=== PATIENT | female | born 1955 | race Caucasian/White ===

== ENCOUNTER 2020-03-04 09:04 | Outpatient (CLI) | payer MEDICARE, SELFPAY ==
--- NOTE | 2020-03-04 11:49 | NEURO_ITS ---
PATIENT NUMBER: [id number] IMPRESSION: # Complains of patchy loss of sensation in lower extremities. # Not diabetic # Normal nerve conduction study including F waves # Needle exam without neurogenci changes. # Clinical correlation recommended. Nerve Conduction Studies Anti Sensory Summary Table Stim Site NR Peak (ms) P-T Amp (?V) Site1 Site2 Delta-P (ms) Dist (cm) [place] (m/s) Left Sup Fibular Anti Sensory (Ant Lat Mall) 14 cm 3.5 10.2 14 cm Ant Lat Mall 3.5 16.0 46 Right Sup Fibular Anti Sensory (Ant Lat Mall) 14 cm 3.9 7.2 14 cm Ant Lat Mall 3.9 16.0 41 Left Sural Anti Sensory (Lat Mall) Calf 3.2 3.0 Calf Lat Mall 3.2 16.0 50 Right Sural Anti Sensory (Lat Mall) Calf 3.7 7.9 Calf Lat Mall 3.7 16.0 43 Motor Summary Table Stim Site NR Onset (ms) O-P Amp (mV) Site1 Site2 Delta-0 (ms) Dist (cm) [place] (m/s) Left Peroneal Motor (Vastus Med) Ankle 4.1 3.6 Popit Ankle 6.5 35.0 54 Popit 10.6 1.8 Right Peroneal Motor (Vastus Med) Ankle 3.7 4.8 Popit Ankle 7.5 35.0 47 Popit 11.2 3.8 Left Tibial Motor (Abd Jarvis Brev) Ankle 6.3 3.7 Knee Ankle 7.9 39.0 49 Knee 14.2 0.7 Right Tibial Motor (Abd Jarvis Brev) Ankle 4.7 4.7 Knee Ankle 8.0 38.0 48 Knee 12.7 2.2 F Wave Studies NR F-Lat (ms) L-R F-Lat (ms) Left Peroneal (Mrkrs) (EDB) 44.93 0.34 Right Peroneal (Mrkrs) (EDB) 45.26 0.34 Left Tibial (Mrkrs) (Abd Hallucis) 50.16 0.78 Right Tibial (Mrkrs) (Abd Hallucis) 50.94 0.78 EMG Side Muscle Nerve Root Ins Act Fibs Amp Dur Recrt Comment Right AntTibialis Dp Br Fibular L4-5 Nml Nml Nml Nml Nml Right Gastroc Tibial S1-2 Nml Nml Nml Nml Nml Right Fibularis Long Sup Br Fibular L5-S1 Nml Nml Nml Nml Nml Right Flex Dig Long Tibial L5-S2 Nml Nml Nml Nml Nml Right Ext Dig Brev Dp Br Fibular L5, S1 Nml Nml Nml Nml Nml Left AntTibialis Dp Br Fibular L4-5 Nml Nml Nml Nml Nml Left Gastroc Tibial S1-2 Nml Nml Nml Nml Nml Left Fibularis Long Sup Br Fibular L5-S1 Nml Nml Nml Nml Nml Left Flex Dig Long Tibial L5-S2 Nml Nml Nml Nml Nml Left Ext Dig Brev Dp Br Fibular L5, S1 Nml Nml Nml Nml Nml Left Ext Dig Long Dp Br Fibular L5-S1 Nml Nml Nml Nml Nml Right Ext Dig Long Dp Br Fibular L5-S1 Nml Nml Nml Nml Nml Right PostTibialis Tibial L5, S1 Nml Nml Nml Nml Nml Left PostTibialis Tibial L5, S1 Nml Nml Nml Nml Nml MTDD
== END 2020-03-04 09:05 | disposition home or self-care (01) ==
PROVIDERS: PCP Family Medicine; Visit Provider Family Medicine
DX: R20.2 Paresthesia of skin (principal)
CPT/HCPCS: 95886; 95910

== ENCOUNTER 2020-04-16 06:36 | Outpatient (CLI) | payer MEDICARE, SELFPAY ==
--- NOTE | ~2020-04-16 | MR_ITS ---
EXAMINATION: MR lumbar spine wo con EXAM DATE: 04/16/2020 07:46 INDICATION: Skin paresthesia. TECHNIQUE: Multi-sequential, multiplanar MR images of the lumbar spine were obtained without contrast . Sagittal T1, T2, T2 fat saturation images. Axial T2 weighted images. There are no prior studies for comparison. FINDINGS: Mild to moderate disc disease at L4-5 and L5-S1, mild at L2-3, L3-4. The conus medullaris t erminates at the L1/2 level and has normal signal intensity and morphology. There is 2 mm retrolisth esis L2 on L3 and L3 on L4. There are no suspicious marrow signal abnormalities. Bilateral renal holger pelvic cysts. Level by level evaluation: T12-L1: Disc does not extend beyond the endplate margin. Facet arthropathy: None. Neural foraminal stenosis: No stenosis. Central canal stenosis: No stenosis. L1-L2: Disc does not extend beyond the endplate margin. Facet arthropathy: Mild. Neural foraminal stenosis: No stenosis. Central canal stenosis: No stenosis. L2-L3: There is a mild diffuse disc bulge. Facet arthropathy: Mild. Neural foraminal stenosis: No stenosis. Central canal stenosis: Mild. L3-L4: There is a mild diffuse disc bulge. Facet arthropathy: Mild to moderate. Neural foraminal stenosis: Mild bilateral. Central canal stenosis: Mild. L4-L5: There is a mild diffuse disc bulge. Facet arthropathy: Mild to moderate. Neural foraminal stenosis: Moderate to severe left, mild to moderate right. Central canal stenosis: Mild. L5-S1: There is a mild diffuse disc bulge. Facet arthropathy: Mild. Neural foraminal stenosis: Moderate right, mild to moderate left. Central canal stenosis: No stenosis. IMPRESSION: L4-5 moderate to severe left neural foraminal stenosis, otherwise mild to moderate lumbar spondylosis. Reviewed, dictated and finalized at location B. OR FINANCIAL ANALYST IMPRESSION: L4-5 moderate to severe left neural foraminal stenosis, otherwise m ild to moderate lumbar spondylosis.
== END 2020-04-16 06:37 | disposition home or self-care (01) ==
PROVIDERS: PCP Family Medicine; Visit Provider Psychiatry & Neurology Neurology
DX: R20.2 Paresthesia of skin (principal); M47.896 Other spondylosis, lumbar region
CPT/HCPCS: 72148

== ENCOUNTER 2021-08-08 17:50 | Emergency (ER) | payer MEDICARE, SELFPAY ==
--- NOTE | ~2021-08-08 | XR_ITS ---
EXAMINATION: XR knee RT min 4V DATE: 08/08/2021 18:21 INDICATION: Right knee pain TECHNIQUE: Anteroposterior, 2 oblique and crosstable lateral views of the right knee were obtained COMPARISON: None. FINDINGS: Alignment is normal. No fracture. At least mild tricompartmental osteoarthritis at the right knee wi th mild joint space narrowing the lateral compartment and marginal osteophytes in all 3 compartments. No joint effusion/layering lipohemarthrosis. Soft tissues are unremarkable. IMPRESSION: 1. At least mild tricompartmental osteoarthritis at the right knee although severity of joint space n arrowing can be underestimated on nonweightbearing imaging. Reviewed, dictated and finalized at location A. NUE INVESTIGATOR IMPRESSION: 1. At least mild tricompartmental osteoarthritis at the right knee although sev erity of joint space narrowing can be underestimated on nonweightbearing imagcielo medina
--- NOTE | ~2021-08-08 | XR_ITS ---
EXAMINATION: XR ankle RT min 3V DATE: 08/08/2021 18:21 INDICATION: Right ankle pain TECHNIQUE: Anteroposterior, oblique, mortise, and lateral views of the right ankle were obtained. COMPARISON: None. FINDINGS: Alignment is normal. No fracture. Mild osteoarthritis at the talonavicular and calcaneocuboid joints .. Moderate-sized Achilles and plantar calcaneal spurs. Smaller enthesophytes along the medial malleo speedy. No ankle joint effusion. The soft tissues are unremarkable. IMPRESSION: 1. No acute osseous abnormality. Reviewed, dictated and finalized at location A. GE ANALYST
[2021-08-08 17:56] VITALS: BP 168/92; PULSE 70; RESP 14; TEMP 36.2; O2SAT 100
--- NOTE | 2021-08-08 18:04 | ED.LOWEXIN ---
HPI - Extremity Injury (Lower) General Chief Complaint: Extremity Injury, Lower Stated Complaint: knee pain Time Seen by Provider: 08/08/21 17:53 Source: RN notes reviewed History of Present Illness HPI Narrative: Patient presents emergency department from home for right knee pain. Patient states that just prior to arrival she was try to get up off the couch when she got up and twisted her right knee causing severe pain in the right knee states pain radiates down into the ankle and up into the posterior leg she denies directly striking the knee states she has been able to place minimal weight on the knee since that time she denies any other trauma or injury states she not taking thing for pain she denies any fevers or chills numbness or tingling of the extremities or any other symptoms of concern Related Data Allergies Allergy/AdvReac Type Severity Reaction Status Date / Time No Known Allergies Allergy Verified 08/08/21 18:00 Review of Systems Review of Systems: Gen.: Denies fevers or chills Musculoskeletal: See HPI Neuro: Denies numbness, tingling, weakness Skin: Denies rash Endo: Denies DM PMFSH Past Medical History Medical History (Updated 08/08/21 @ 19:14 by Guy Grullon DO) Patient denies significant medical history Social History Social History (Updated 08/08/21 @ 18:06 by Guy Grullon DO) Smoking status: Never smoker Exam Narrative: APPEARANCE: No acute distress, nontoxic, resting in bed Eyes: EOMI HEENT: Normocephalic, atraumatic, RESPIRATORY: No respiratory distress MUSCULOSKELETAl: Tender palpation of the right anterior lateral and medial knee no swelling present pain with any movement, tender palpation right medial malleolus and tenderness with anterior lateral ankle dorsalis pedis pulse 2+ neurovascular intact NEURO: Awake and alert. Following commands, speech normal, no focal deficits SKIN:: Warm, dry. Normal Color no rash or lesions Course Course Emergency Course: Discussed with patient results of workup and diagnosis. Discussed need for follow-up with primary care, proper use of medication, and reasons to return to the emergency department. Patient understands and agrees to current treatment plan Vital Signs Vital signs: Vital Signs Temperature 97.2 F L 08/08/21 17:56 Pulse Rate 70 08/08/21 17:56 Respiratory Rate 14 08/08/21 17:56 Blood Pressure 168/92 H 08/08/21 17:56 Pulse Oximetry 100 08/08/21 17:56 Temperature 97.2 F L 08/08/21 17:56 Pulse Rate 70 08/08/21 17:56 Respiratory Rate 14 08/08/21 17:56 Blood Pressure 168/92 H 08/08/21 17:56 Pulse Oximetry 100 08/08/21 17:56 MDM - Extremity Injury (Lower) Imaging Data Radiologist's impression: ITS Impressions Ankle X-Ray 08/08/21 18:43 IMPRESSION: 1. No acute osseous abnormality. Knee X-Ray 08/08/21 18:49 IMPRESSION: 1. At least mild tricompartmental osteoarthritis at the right knee although severity of joint space narrowing can be underestimated on nonweightbearing imaging. Discharge Plan Discharge Clinical Impression: Right knee sprain Patient Disposition: Home, Self-Care Condition: Stable Instructions: Antibiotic Form, Knee Sprain (ED) Additional Instructions: Return for increasing pain numbness or tingling in the extremities or any other symptoms of concern Prescriptions: New ibuprofen [IBU] 600 mg tablet 600 mg PO Q6H PRN (Reason: pain) Qty: 14 RF: 0 Follow-up/Referrals: Adriana,Cyril Carmona MD [Primary Care Provider] - 2 Days Time of Disposition: 19:14
[2021-08-08] MEDS: HYDROcodone/acetaminophen (*CRX) 5-325 MG TABLET 1 TAB PO (18:11)
== END 2021-08-08 19:40 | disposition home or self-care (01) ==
PROVIDERS: Emergency Provider Emergency Medicine; PCP Family Medicine
DX: S83.91XA Sprain of unspecified site of right knee, initial encounter (principal); M17.11 Unilateral primary osteoarthritis, right knee; X50.9XXA Other and unspecified overexertion or strenuous movements or postures, initial encounter
CPT/HCPCS: 73564; 73610; 99284; A9270

== ENCOUNTER 2023-12-20 03:42 | Emergency (ER) | payer MEDICARE, OTHER, SELFPAY ==
--- NOTE | ~2023-12-20 | XR_ITS ---
Portable chest x-ray Comparison: None Clinical History: Cough, shortness of breath Findings: Lungs are clear, without focal consolidation or pleural effusion. Cardiomediastinal silho uette is unremarkable. Bones and soft tissues are unremarkable. Impression: Clear lungs. Reviewed, dictated and finalized at location . Impression: Clear lungs.
[2023-12-20 03:42] VITALS: BP 133/70; PULSE 87; RESP 25; TEMP 38.3; O2SAT 100
[2023-12-20 03:47] VITALS: BP 133/70; PULSE 88; PULSE 89; RESP 25; TEMP 38.3; O2SAT 100
[2023-12-20] MEDS: ACETAMINOPHEN 500 MG TABLET 1000 MG PO (04:05)
[2023-12-20] MEDS: SODIUM CHLORIDE 0.9% IV 1,000 ML 999 ML IV CONT (04:05)
--- NOTE | 2023-12-20 04:30 | ED.GENADULT ---
HPI - General Adult General Chief complaint: Shortness of Breath/Dyspnea Stated complaint: SHORT OF BREATH Time Seen by Provider: 12/20/23 03:45 History of Present Illness HPI narrative: Patient is a 68-year-old female who presents emergency department with chief complaint of shortness of breath body aches and headache. The patient states she has started having aching throughout her entire body this evening reports she has a sore throat the patient reports that she has not been exposed to COVID patient reports had a dry cough with this. Related Data Allergies Allergy/AdvReac Type Severity Reaction Status Date / Time No Known Allergies Allergy Verified 06/28/22 15:14 [facility] Past Medical History Medical History Patient denies significant medical history Social History Social History Smoking status: Never smoker Exam Narrative: GENERAL: Well-appearing, well-nourished, and in no acute distress. HEAD: Normocephalic, atraumatic. EYES: PERRLA and EOMI. ENT: Nares clear, no rhinorrhea or epistaxis. Mucous membranes moist. NECK: Supple. CHEST: Clear to auscultation. No respiratory distress. HEART: Regular rate and rhythm. No murmur heard. Normal peripheral pulses. ABDOMEN: Soft, nontender, nondistended, normal active bowel sounds. EXTREMITIES: Normal range of motion. No edema. SKIN: Warm, dry, no rash. NEURO: No focal deficits. Alert and oriented x3. PSYCH: Normal mood and affect. Course Vital Signs Vital signs: Vital Signs Temperature 38.3 C H 12/20/23 03:42 Pulse Rate 87 12/20/23 03:42 Respiratory Rate 25 H 12/20/23 03:42 Blood Pressure 133/70 12/20/23 03:42 Pulse Oximetry 100 12/20/23 03:42 Oxygen Delivery Room Air 12/20/23 03:42 Temperature 38.3 C H 12/20/23 03:47 Pulse Rate 94 12/20/23 05:57 Respiratory Rate 19 12/20/23 05:57 Blood Pressure 133/60 12/20/23 05:57 Pulse Oximetry 95 12/20/23 05:57 Oxygen Delivery Room Air 12/20/23 03:47 Medical Decision Making MDM Narrative Medical decision making narrative: Differential diagnosis includes COVID-19, UTI, URI, pneumonia Laboratory studies were obtained on the mesh normal CBC CMP was within normal limits with exception of AST being 9 3 and ALT 55 urinalysis showed no evidence UTI COVID flu RSV were negative strep was negative chest x-ray showed no focal infiltrate The patient will be discharged home follow up with her primary care provider Vital Signs Vital Signs: Vital Signs Temperature 38.3 C H 12/20/23 03:42 Pulse Rate 87 12/20/23 03:42 Respiratory Rate 25 H 12/20/23 03:42 Blood Pressure 133/70 12/20/23 03:42 Pulse Oximetry 100 12/20/23 03:42 Oxygen Delivery Room Air 12/20/23 03:42 Temperature 38.3 C H 12/20/23 03:47 Pulse Rate 94 12/20/23 05:57 Respiratory Rate 19 12/20/23 05:57 Blood Pressure 133/60 12/20/23 05:57 Pulse Oximetry 95 12/20/23 05:57 Oxygen Delivery Room Air 12/20/23 03:47 Lab Data 12/20/23 04:00 12/20/23 04:00 Labs: Lab Results 12/20/23 12/20/23 Range/Units 04:00 05:14 WBC 5.7 (4.5-10.0) K/mm3 RBC 3.74 L (4.2-5.4) M/mm3 Hgb 11.7 L (12.0-15.0) g/dL Hct 35.2 L (37.0-47.0) % MCV 94.1 (80-100) fl MCH 31.3 (26-34) pg MCHC 33.2 (32-36) g/dl RDW 13.2 (11.5-14.5) % Plt Count 163 (150-375) k/mm3 MPV 10.9 H (7.4-10.4) fl Immature Gran % (Auto) 0.2 (0-0.5) % Neut % (Auto) 90.1 H (45.5-73.1) % Lymph % (Auto) 8.6 L (18.3-44.2) % [place] % (Auto) 0.3 L (2.6-8.5) % Eos % (Auto) 0.5 (0-4.4) % Baso % (Auto) 0.3 (0.2-1.2) % Lymph # (Auto) 0.49 L (0.9-3.2) K/mm3 [place] # (Auto) 0.0 L (0.1-0.6) K/mm3 Eos # (Auto) 0.0 (0-0.3) K/mm3 Baso # (Auto) 0.0 (0.0-0.1) K/mm3 Abs Immat Gran (auto) 0.01 (0.00-0.031) K/mm3 Ab
[2023-12-20 04:42] LABS: Basophils Percent Auto 0.3 % (0.2-1.2); Eosinophils Percent Auto 0.5 % (0-4.4); Hematocrit 35.2 % (37.0-47.0); Hemoglobin 11.7 g/dL (12.0-15.0); Immature Granulocyte Absolute 0.01 K/mm3 (0.00-0.031); Immature Granulocyte Percent A 0.2 % (0-0.5); Lymphocytes Absolute Auto 0.49 K/mm3 (0.9-3.2); Lymphocytes Percent Auto 8.6 % (18.3-44.2); Mean Corpuscular HGB Conc 33.2 g/dl (32-36); Mean Corpuscular Hemoglobin 31.3 pg (26-34); Mean Corpuscular Volume 94.1 fl (80-100); Mean Platelet Volume 10.9 fl (7.4-10.4); Monocytes Percent Auto 0.3 % (2.6-8.5); Neutrophils Absolute Auto 5.2 K/mm3 (1.3-6.7); Neutrophils Percent Auto 90.1 % (45.5-73.1); Platelet Count Result 163 k/mm3 (150-375); Red Blood Count 3.74 M/mm3 (4.2-5.4); Red Cell Distribution Width 13.2 % (11.5-14.5); White Blood Count 5.7 K/mm3 (4.5-10.0)
[2023-12-20 04:51] LABS: Lactic Acid Reflex 1.8 mmol/L (0.7-2.0)
[2023-12-20 04:52] LABS: Alanine Aminotransferase 55 U/L (6-35); Alkaline Phosphatase 105 U/L (38-126); Anion Gap 7 mmol/L (4-12); Aspartate Amino Transferase 93 U/L (14-36); Bilirubin,Total 0.5 mg/dL (0.2-1.3); Blood Urea Nitrogen 16 mg/dL (7-17); Carbon Dioxide 28 mmol/L (22-30); Chloride 105 mmol/L (98-107); Estimated CRCL calculation 75 ml/min; Estimated Glomerular Filt Rate > 60; Glucose 97 mg/dL (65-110); Potassium 3.7 mmol/L (3.4-5.0); Sodium 140 mmol/L (137-145)
[2023-12-20] MEDS: KETOROLAC 15 MG/ML VIAL (*BKC) IV PUSH (05:05)
[2023-12-20 05:06] LABS: Strep Group A RT-PCR NOT DETECTED (Negative)
[2023-12-20 05:18] LABS: Influenza A QL RT-PCR Negative (Negative); Influenza B QL RT-PCR Negative (Negative); RSV RNA, RT-PCR Negative (Negative); SARS-CoV-2 RNA PCR Negative (Negative)
[2023-12-20] MEDS: diphenhydrAMINE HCl INJ 50 MG/ML VIAL 25 MG IV PUSH (05:26)
[2023-12-20 05:38] LABS: Appearance Urine Clear (Clear); Bilirubin Urine Negative (Negative); Blood Urine Negative (Negative); Color Urine Yellow (Yellow); Glucose Urine UA Negative (Negative); Ketones Urine Negative (Negative); Leukocyte Esterase Ur Negative LEU/UL (Negative); Nitrate Urine Negative (Negative); Protein Urine Negative (Negative); Specific Grav Ur 1.013 (1.001-1.035); pH Urine 7.5 (5.0-9.0)
[2023-12-20 05:43] LABS: Add Urine Microscopic? NO
[2023-12-20 05:57] VITALS: BP 133/60; PULSE 94; RESP 19; O2SAT 95
== END 2023-12-20 06:35 | disposition home or self-care (01) ==
PROVIDERS: Emergency Provider Emergency Medicine; PCP Family Medicine
DX: J06.9 Acute upper respiratory infection, unspecified (principal); B34.9 Viral infection, unspecified; Z20.822 Contact with and (suspected) exposure to COVID-19
CPT/HCPCS: 36415; 71045; 80053; 81003; 83605; 85025; 87637; 87651; 96361; 96374; 96375; 99284; A9270; J1200; J1885; J7030

== ENCOUNTER → 2024-01-07 16:27 | Outpatient (REF) | payer MEDICARE, SELFPAY | LOC: ANHLAB 16:27 | PROVIDERS: PCP Family Medicine; Visit Provider Plastic Surgery | DX: R22.9 Localized swelling, mass and lump, unspecified (principal) | CPT/HCPCS: 88304 ==

== ENCOUNTER 2024-02-06 07:18 | Outpatient (CLI) | payer MEDICARE, SELFPAY ==
--- NOTE | ~2024-02-06 | US_ITS ---
EXAMINATION: US soft tissue LE DATE: 02/06/2024 08:13 INDICATION: Left thigh mass. TECHNIQUE: Multiple grayscale and Doppler ultrasound images of the left lower limb were obtained. COMPARISON: None FINDINGS: There is no abnormal mass in the patient's area of concern in left thigh. IMPRESSION: 1. No abnormal mass in the patient's area of concern in left thigh. Reviewed, dictated and finalized at location A.
--- NOTE | ~2024-02-06 | US_ITS ---
EXAMINATION: US soft tissue UE RT DATE: 02/06/2024 08:14 INDICATION: Right upper limb mass. TECHNIQUE: Multiple grayscale and Doppler ultrasound images of the right upper limb were obtained. COMPARISON: None FINDINGS: In the right upper arm, there is a 1.3 x 0.7 x 0.4 cm hyperechoic subcutaneous mass. IMPRESSION: 1. 1.3 cm hyperechoic subcutaneous mass in the right upper arm, likely inflammation or a lipoma. Reviewed, dictated and finalized at location A. IMPRESSION: 1. 1.3 cm hyperechoic subcutaneous mass in the right upper arm, likely inflamma tion or a lipoma.
== END 2024-02-06 07:19 | disposition home or self-care (01) ==
PROVIDERS: PCP Physician Assistant; Visit Provider Physician Assistant Surgical
DX: R22.31 Localized swelling, mass and lump, right upper limb (principal); R22.42 Localized swelling, mass and lump, left lower limb
CPT/HCPCS: 76882

== ENCOUNTER 2024-07-22 15:27 | Outpatient (CLI) | payer MEDICARE, SELFPAY ==
--- NOTE | ~2024-07-22 | MM_ITS ---
EXAMINATION: MM screening [facility] HISTORY: Screening TECHNIQUE: Craniocaudal and mediolateral oblique 3-D tomosynthesis images were obtained and synthetic 2-D images were generated. CAD analysis was submitted and interpreted. COMPARISON: No prior mammogram is available for comparison at this institution. BREAST PARENCHYMAL COMPOSITION: Not Dense: The breasts are almost entirely fatty. FINDINGS: There are small masses in the upper outer quadrant of the left breast. There is no mammogra phic evidence for malignancy in the right breast. IMPRESSION: 1. Small left breast masses. 2. Recommend comparison to outside mammograms to assess stability. BI-RADS Category 0: Incomplete: Needs additional imaging evaluation. Reviewed, dictated and finalized at location B. [facility]ENT
--- OUTSIDE RECORDS SUMMARY | 2024-07-22 15:31 | XMS_ITS | Referral Summary ---
Author Organization [facility] Address [address] [place] [address] Care Team Providers Care Marketing Underwriter Name Role Phone Robert Everett MD Primary Care Provider [phone] Allergies No known active allergies Medications atorvastatin (LIPITOR) 20 mg tablet 01/10/2022 Active fluconazole (DIFLUCAN) 150 mg tablet 1 TAB X 1 DAY MAY REPEAT IN 3 DAYS NEEDED 04/06/2023 Active Xiidra 5 % dropperette 04/16/2023 Active Active Problems Problem Noted Date Diagnosed Date Osteoarthritis 03/04/2019 Autoimmune hepatitis (CMS/HCC) 01/14/2019 Chronic constipation 01/14/2019 Nodular radiologic density 01/14/2019 Knee pain 01/14/2019 Pain of right lower extremity 01/14/2019 Sinusitis 01/14/2019 Symptoms involving urinary system 01/14/2019 Tear of meniscus of knee 01/14/2019 Endometrial cancer (CMS/HCC) 01/14/2019 Overview (01/14/2019): Added automatically from request for surgery [id number] Post-menopausal bleeding 01/14/2019 Overview (01/14/2019): Added automatically from request for surgery [id number] Obesity with body mass index 30 or greater 01/19 Positive antinuclear antibody 01/20/2016 Immunizations Immunization Administration Dates Next Due Influenza, Quadrivalent, Hig h Dose, Preservative Free, Intrr 03/03/2022,06/09/2021,02/04/2020 Influenza, Quadrivalent, Spl it, Intramuscular 03/30/2016 Influenza, Quadrivalent, Spl it, Preservative Free, Intramuscular 04/04/2017 Pfizer SARS-CoV-2 Monovalent Vaccination (12+ Yrs) PURPLE 08/17/2020 Pneumococcal Polysaccharide PPV23 06/09/2021 Tdap 02/08/2020 ZOSTER Recombinant 05/05/2020,02/08/2020 Social History Tobacco Use Types Packs/Day Years Used Date Smoking Tobacco: Never Smokeless Tobacco: Never Tobacco Cessation:Counseling Given: Not Answered Alcohol Use Standard Drinks/Week Comments Yes 1 (1 standard drink = 0.6 oz pure alcohol) occasionally , 2 drinks a month AUDIT-C Answer Date Recorded Q1: How often do you have a drink containing alc ohol? 2-4 times a month 04/11/2022 Q2: How many drinks containi ng alcohol do you have on a typical day when you are drinking? 5 or 6 04/11/2022 Q3: How often do you have si x or more drinks on one occasion? Less than monthly 04/11/2022 Comments No Sex and Gender Information Value Date Recorded Sex Assigned at Not on file Legal Sex Female 5:53 AM SECOND MATE Gender Identity Not on file Sexual Orientation Not on file Last Filed Vital Signs Vital Sign Reading Time Taken Comments Blood Pressure 160/86 04/18/2023 11:34 AM SECOND MATE Pulse 68 04/18/2023 11:34 AM SECOND MATE Temperature 36.6 C (97.8 F) 04/18/2023 11:34 AM SECOND MATE Respiratory Rate 16 04/18/2023 11:3 4 AM SECOND MATE Oxygen Saturation 96% 04/18/2023 11: 34 AM SECOND MATE Inhaled Oxygen Concentration - - Weight 99.7 kg (219 lb 14.4 oz) 023 11:34 AM SECOND MATE Height 160 cm (5' 2.99 ) 04/18/2023 11: 34 AM SECOND MATE Body Mass Index 38.96 04/18/2023 11:34 AM SECOND MATE Plan of Treatment Not on file Procedures Procedure Name Priority Date/Time Associated Diagnosis Comments COLONOSCOPY 02/06/2019 8:01 AM CDT from Last 3 Months or Most Recently Relevant to Health Maintenance Results * COLONOSCOPY (02/06/2019 8:01 AM CDT) Anatomical Region Laterality Modality Other Narrative Procedure Note Shahzad Hylton MD - 02/06/2019 8:01 AM CDT ENDOSCOPY LAB Patient Name: Lashonda Lyons Procedure Date: 02/06/2019 8:01 AM Date of : 1955 Admit Type: Outpatient Age: 63 Gender: Female Attending MD: Shahzad Hylton M.D. Room: [place] [address] Note Status: Manager Implementation Override Procedure: Colonoscopy Indications: Screening for colorectal malignant neoplasm (last colonoscopy was 10 years ago) Providers: Shahzad Hylton M.D. Referring MD: Juan Miguel Evangelista MD Medicines: Monitored Anesthesia Care Complications: No immediate complications. Estimated Blood Loss: Estimated blood loss: none. Procedure: Pre-Anesthesia Assessment: - Immediately prior to administration of medications,the patient was re-assessed for adequacy to receivesedatives. The benefits, risks and alternatives of the procedureand sedation were discussed and informed consent wasobtained. All questions were answered. Please refer to the signed informed consent document in the medical record. Thescope was passed under direct vision. The [id number] introduced through the anus and advanced to the cecum, identified by appendiceal orifice and ileocecal valve.The colonoscopy was performed without difficulty. Thepatient tolerated the procedure well. The quality of the bowel preparation was evaluated using the BBPS ([place] Bowel Preparation Scale) with scores of: Right Colon = 2(minor amount of residual staining, small fragments of stool and/or opaque liquid, but mucosa seen well), Transverse Colon = 3 (entire mucosa seen well with no residual staining, small fragments of stool or opaque liquid)and Left Colon = 2 (minor amount of residual staining,small fragments of stool and/or opaque liquid, but mucosaseen well). The total BBPS score equals 7. The quality ofthe bowel preparation was good. The bowel preparation usedwas SUPREP. Bowel prep was administered using a splitdose. Findings: The perianal and digital rectal examinations were normal. A 3 mm polyp was found in the ascending colon. The polyp was sessile. The polyp was removed with a hot biopsy forceps. Resection andretrieval were complete. The exam was otherwise without abnormality. Impression: - One 3 mm polyp in the ascending colon, removed with a hot biopsy forceps. Resected and retrieved. - The examination was otherwise normal. Recommendation: - Await pathology results. - Repeat colonoscopy in 10 years for surveillance. Shahzad Hylton MD Shahzad Hylton M.D. 02/06/2019 8:47:15 AM Number of Addenda: 0 Note Initiated On: 02/06/2019 8:01 AM us Shahzad Hylton MD ENDOSCOPY PROCEDURES Ed ited Result - Final from Last 3 Months or Most Recently Relevant to Health Maintenance Insurance ANTHEM ACCESS ANTHEM ACCESS CHOICE [employer] MEDICARE GOLD ANTHEM ACCESS Member Subscriber Plan / Payer (Ef fective 2019-Present) Name:Karina Lyonsdia Relation to Subscriber:Self Name:Lashonda Lyons Payer ID:[id number] (NAIC) Type:[employer] Address: [address] [place] [id number] [facility] MDCR HMO REF Advance Directives For more information, please contact: [phone] * Full Code (Latest Code Status on File) Date Activated Date Inactivated Comments 02/13/2019 5:34 PM 02/14/2019 4:01 PM * Full Code Date Activated Date Inactivated Comments 02/06/2019 7:38 AM 02/06/2019 1:33 PM Care Teams Marketing Underwriter Relationship Specialty Start Date End Date Robert Everett MD [address] [place] [address] PCP - General 01/23/19
--- OUTSIDE RECORDS SUMMARY | 2024-07-22 15:31 | XMS_ITS | Data Portability ---
Author Organization [facility] Address [address] [place] [address] Care Team Providers Care Magistrate Name Role Phone FRANKLIN MATTA Primary Care Provider Assessment Encounter Date Assessment Date Assessment LastModified by Organization Details LastModified Time 03/13/2023 03/13/2023 Annual gynecological exam performed. Patient will come back in a year unless there are new symptoms. [email or web address] Not available 03/13/2023 09:40:27 Plan of Treatment Reminders Order Date Submit Date Provider Last Modified By Organization Details Last Modified Time Details Appointments None recorded. Lab None recorded. Referral urogynecolo gist referral 2022 023 [email or web address] [id number] Jovan Shaffer MD, [address] [facility] [address], [place], [address], 09:43:15 Procedures None recorded. Surgeries None recorded. Imaging None recorded. Medication Orders terconazole 0.4 % vaginal cream 2021 022 [email or web address] [id number], [address], [place], [address], 09:40:46 Patient TargetsNo targets recorded. Patient InstructionsNo instructions recorded. Reason for Referral Urogynecologist Referral for Prolapse of female genital organs Referring Physician: Emilie Haas, [employer], Encounter Date: 04/09/2023 Results Created Date Observation Date Name Description Value Unit Range Abnormal Flag Note LastModifiedBy Organization Detail LastModifiedTime 04/28/20 24 04/28/2024 SURGI [facility] PATHO LOGY surgical pathology SEE RESULT S BELOW CASE REPOR T: Surgi constanza Patho logy Repor t Case: [id number] Autho herberth moise Provi lisa: Berna Everett MD Colle cted: 04/28 1422 Order ing Locat ion: [place] Path[facility] Recei shayan: 04/29 0230 Patho logis t: Stefan Baumann MD Speci mens: A) - Vulva , Vulva r lesio n B) - Vulva , Vulva r lesio n ----- ----- ----- ----- ----- ----- ----- ----- ----- ----- ----- ----- ----- ----- ----- ----- ----- ---- FINAL DIAGN OSIS: A. Vulva r lesio n: -Sebo rrhei c kerat osis. B. Vulva r lesio n: -Handy lupis aЮлия wang by Stefan Baumann MD on 04/29 at 6:05 PM ----- ----- ----- ----- ----- ----- ----- ----- ----- ----- ----- ----- ----- ----- ----- ----- ----- ---- CLINI CONSTANZA INFOR MATIO N: Jonathanio n of vulva MICRO SCOPI C DESCR IPTIO N: A micro scopi c exami natio n was perfo rmed. GROSS DESCR IPTIO N: A. Vulva . The speci men is label ed with the patie nt's name, demog raphceasar pierre and vulva r lesio n . Recei shayan in forma alicia is a 2.0 x 1.4 cm ellip se of skin that is excis ed to a depth of 0.5 cm. There is a centr ally locat ed 1.4 x 1.4 cm avila lesio n. The steff n is inked black and the speci men is seria lly secti oned. It is submi tted all as follo ws: A1: Seria l secti ons A2-A3 : Bisec warren tips Gross ed by Laurel Gonzalez on B. Vulva . The speci men is label ed with the patie nt's name, demog raphi cs and vulva r lesio n . Recei shayan in forma alicia is a 0.7 x 0.5 cm ellip se of skin that is excis ed to a depth of 0.5 cm. There is a centr ally locat ed 0.6 x 0.4 cm grade lesio n. The steff n is inked black and the speci men is trise cted and submi tted in casse tte B1. Gross ed by Laurel Gonzalez on Not Available [facility] (Lab) [address], [place], [address], 04/29/2024 19:08:10 Result Notes None recorded. Problems Name Problem SNOMED Code Status Onset Date Resolution Date Notes Provider Name and Address Organization Details Recorded Time Malignant neoplasm of endometrium of corpus uteri 428299834 Active 2022 Arabella gómez, [facility] 18:03:35 Problem Notes None recorded. Procedures Surgical History Date Name Laterality Status Provider Name and Address Organization Details Recorded Time 05/14/20 24 Suture/Staple removal completed Robert Everett MD [address], [place], [address], [facility] 05/14/2024 18:06:23 04/28/20 24 Excision and closure completed Robert Everett MD [address], [place], [address], [facility] 04/28/2024 10:24:15 03/15/20 22 Date of Last Pap Smear completed Rufina Oj [facility] 04/28/2024 09:37:30 01/09/20 19 diagnostic laparoscopy of female pelvis completed [facility] 01/23/2022 16:59:41 06/04/19 19 Total Hysterectomy completed [facility] 01/23/2022 16:50:04 06/04/18 90 Appendectomy completed [facility] 01/23/2022 16:49:48 06/04/18 71 Tonsillectomy completed [facility] 01/23/2022 16:49:39 Imaging Results None recorded. Procedure Notes None recorded. Medical Equipment None Reported. Allergies No known drug allergies Medications Name Sig Start Date Stop Date Status Note LastModified by Organization Details LastModified Time status covid-19/fl u a&b antigen tst TEST DIRECTED TODAY 04/28 completed Not Available Not Available Not Available amoxicillin 500 mg capsule TAKE 1 CAPSULE BY MOUTH TWICE A DAY WITH FOOD 04/28 completed Not Available Not Available Not Available atorvastati n 40 mg tablet TAKE 1 TABLET BY MOUTH EVERY DAY active Not Available Not Available No t Available terconazole 0.4 % vaginal cream Insert 1 applicato rful every day by vaginal route at bedtime for 7 days. 03/13 completed Not Available Not Available Not Available atorvastati n 20 mg tablet Take 1 tablet every day by oral route. 04/28 completed Not Available Not Available Not Available dexamethaso ne 6 mg tablet TAKE 1 TABLET BY MOUTH EVERY DAY IN THE MORNING FOR 7 DAYS 04/28 completed Not Available Not Available Not Available ciprofloxac in 500 mg tablet TAKE 1 TABLET BY MOUTH EVERY 12 HOURS FOR 7 DAYS 04/28 completed Not Available Not Available Not Available fenofibrate micronized 134 mg capsule TAKE 1 CAPSULE BY MOUTH EVERY DAY IN THE MORNING FOR HIGH TRIGLYCER IDES active Not Available Not Available No t Available clotrimazol e-betametha sone 1 %-0.05 % topical cream APPLY TO AFFECTED/ SURROUNDI NG AREAS UNDER BOTH BREASTS TWICE DAILY IN THE MORNING/E VENING X2 WEEKS active Not Available Not Available No t Available ergocalcife rol (vitamin D2) 1,250 mcg (50,000 unit) capsule TAKE 1 CAPSULE BY MOUTH ONCE WEEKLY active Not Available Not Available No t Available ezetimibe 10 mg tablet TAKE 1 TABLET BY MOUTH EVERY DAY IN THE MORNING FOR HIGH CHOLESTRO L active Not Available Not Available No t Available ibandronate 150 mg tablet TAKE 1 TABLET BY MOUTH EVERY MONTH active Not Available Not Available No t Available Vitals Date Recorded Body height Body mass index (BMI) Body weight Systolic blood pressure Diastolic blood pressure Provider Name and Address Organization Details Last Updated DateTime 01/23/2022 160.02 cm 40.4 kg/m2 498750.0 6 g 144 mm[Hg] 78 mm[Hg] [facility] 2 16:49:15 Date Recorded Body height Body mass index (BMI) Body weight Systolic blood pressure Diastolic blood pressure Provider Name and Address Organization Details Last Updated DateTime 03/13/2023 160.02 cm 39.9 kg/m2 364110.2 8 g 155 mm[Hg] 83 mm[Hg] [facility] 3 09:40:43 Date Recorded Body height Body mass index (BMI) Body weight Systolic blood pressure Diastolic blood pressure Provider Name and Address Organization Details Last Updated DateTime 04/09/2023 160.02 cm 39.7 kg/m2 878094.6 9 g 147 mm[Hg] 83 mm[Hg] Arabella Linton [facility] 3 18:02:17 Date Recorded Body height Body mass index (BMI) Body weight Systolic blood pressure Diastolic blood pressure Provider Name and Address Organization Details Last Updated DateTime 04/28/2024 160.02 cm 41.1 kg/m2 779623.4 3 g 143 mm[Hg] 78 mm[Hg] Rufina Mcwilliams [facility] 4 09:36:28 Date Recorded Body height Body mass index (BMI) Body weight Systolic blood pressure Diastolic blood pressure Provider Name and Address Organization Details Last Updated DateTime 05/14/2024 160.02 cm 41.8 kg/m2 595685.8 g 156 mm[Hg] 87 mm[Hg] Rufinadelisa Mcwilliams [facility] 17:47:17 Social History Question Answer Notes LastModified by Organizat ion Details LastModified Time Tobacco Smoking Status Never Smoker Mayte Ring rico, [facility] 03/13/2023 09:41:07 What Is Your Level Of Alcohol Consumption? Occasional [email or web address] Information not available 04/09/2023 Are You Blind Or Do You Have Difficulty Seeing? No [email or web address] Information n ot available 04/09/2023 What Is Your Level Of Caffeine Consumption? Moderate [email or web address] Information not available 04/09/2023 How Much Tobacco Do You Chew? None Information not available 04/28/2024 In The 14 Days Before Symptom Onset, Have You Had Close Contact With A Laboratory-confirm ed COVID-19 While That Case Was Ill? No [email or web address] Information n ot available 04/09/2023 In The 14 Days Before Symptom Onset, Have You Had Close Contact With A Person Who Is Under Investigation For COVID-19 While That Person Was Ill? No Information not available 04/09/2023 Have You Been To An Area Known To Be High Risk For COVID-19? No [email or web address] Information not available 04/09/2023 Are You Deaf Or Do You Have Serious Difficulty Hearing? No [email or web address] Information not available 04/09/2023 What Type Of Diet Are You Following? REGULAR [email or web address] Information n ot available 04/09/2023 Have You Ever Been Counseled For Unhealthy Alcohol Use? No [email or web address] Information not available 04/09/2023 Do You Use Your Seat Belt Or Car Seat Routinely? Yes [email or web address] Information not available 04/09/2023 Do You Have Smoke And Carbon Monoxide Detectors In Your Home? Yes [email or web address] Information not available 04/09/2023 How Much Tobacco Do You Smoke? No Information not available 04/28/2024 Do You Feel Stressed (tense, Restless, Nervous, Or Anxious, Or Unable To Sleep At Night)? [id number] [email or web address] Information not available 04/09/2023 Do You Use Any Illicit Or Recreational Drugs? No [email or web address] Information not available 04/09/2023 Do You Use Sunscreen Routinely? Yes [email or web address] Information not available 04/09/2023 Has Tobacco Cessation Counseling Been Provided? No [email or web address] Information not available 04/09/2023 Do You Or Have You Ever Used Any Other Forms Of Tobacco Or Nicotine? No [email or web address] Information not available 04/09/2023 Sex: Unknown Functional Status Question Answer Note LastModified by Organizat ion Details LastModified Time Do you have difficulty walking or climbing stairs? No [email or web address] Information not available 04/09/2023 Are you able to walk? YESWOREST [email or web address] Information not available 04/09/2023 Are you able to care for yourself? Yes [email or web address] Information not available 04/09/2023 Do you have difficulty dressing or bathing? No [email or web address] Information not available 04/09/2023 What is your exercise level? Occasional [email or web address] Information not available 04/09/2023 Mental Status None recorded. Family History Relationship Description Onset Age of this Age Resolved Age Notes LastModified by Organization Details LastModified Time Father Malignant tumor of colon [email or web address] Not available 2021 16:23:45 Father Heart disease [email or web address] Not available 2021 16:25:24 Mother Diabetes mellitus [email or web address] Not available 2021 16:25:37 Mother Hyperlipidem ia Not available 2023 09:03:41 Mother Hypertensive disorder [email or web address] Not available 2021 16:26:22 Mother Malignant tumor of ovary [email or web address] Not available 2021 16:26:58 Medical History Condition Response Allergies (Food, seasonal, environmental ) N Other N Breast Cancer N Drug/Latex Allergies/Reactions N Blood Transfusion N Dermatologic Disorders N Lung Disease N Defects or Inherited Disease N Breast Problem N Gestational Diabetes N Hematologic disorders N Anesthesia Complications N History of STI N Deep Vein Thrombosis N Polycystic ovary syndrome N Anxiety Disorder N Autoimmune disease N Arthritis N Infertility N Polyps N Acid Reflux (GERD) N History of abnormal pap N Cancer Y Stroke N Varicosities N Neurologic/Epilepsy N Endometriosis Y High Cholesterol Y Headaches N Fibromyalgia N Kidney Disease N Heart Problems N Kidney or Bladder Problems N Thyroid Problems N GI Problems N Eating Disorder N Anemia Y Art (IVF or FET) N Psychiatric Illness N Ovarian Cancer N Diabetes N Pulmonary (TB, Asthma) N Hepatitis/Liver Disease N No Past Medical History N Eczema N Urinary Tract Infection N Abuse/Domestic Violence N Asthma N Trauma/Violence N Depression/ depression N Heart Disease N Pre-Eclampsia N Hypertension N Osteoporosis N Thrombophilias N Gynecological History Statement/Question Response Abnormal Pap N Date of LMP 06/04/2018 STIs/STDs N Was last menstrual period normal Y HPV Vaccine N Current Control Method Hysterectom y Are cycles usually normal Y Frequency of Cycle (Q days) 3 Menses Monthly N Age of first menstrual cycle 11 Date of Last Pap Smear 03/15/2022 Sexual Problems? N LMP Unknown Obstetrics History GPAL:G 4 P 2 0 2 2 Type Value Full Term 2 Spontaneous 2 Living 2 Total 4 Past Encounters Encounter ID Performer Location Encounter Start Date Encounter Closed Date Diagnosis/Indication Diagnosis SNOMED-CT Code Diagnosis ICD10 Code Diagnosis Note [id number] Robert Everett MD [facility] [address] [address] 01/23/2022 16:15:37 01/23/2022 17:46:22 Vaginitis 09990073 N76.0 Lesion of vulva 63118536 6 N90.89 this patient is a 66-year-ol d female presents for vulvar irritation and vulvar lesion. The suprapubic area near the months inferior mons. She has a seborrheic keratosis. Was examined. There was also a hemangioma in that same space. Is very close to the midline. We talked about treatment. Talked about excision primarily. Patient has survived endometria l cancer. She has asked about Pap smear. She needs Pap smear the vaginal cuff for endometria l cancer recurrence . She has vulvar irritation . We will treat for yeast infection. It has only been occurring for 1 week. One Diflucan did not help. We agreed 5 nights of fluconazol e. [id number] Robert Everett MD [facility] [address] [address] 03/13/2023 09:10:11 03/13/2023 22:40:03 [id number] Emilie Haas [facility] [address],[place] [address] 04/09/2023 17:49:15 04/10/2023 09:43:15 Prolapse of female genital organs 26584196 N81.9 Today we discussed prolapses and uses of pessaries. She barely has a stage one cystocele. The vaginal peters lax as is neck of bladder; some urethral hypermobil ity on exam.Her biggest concerns is getting bladder emptied so UTI is not more likely; pressure not there; and decrease the frequency of urination; KIMBERLEY.Recomm end refer to Urogyn to discuss all options that would be best for her.Agreea ble to recommenda tion.Retur n for WWE Time spent in visit is a total of 30mins with at least 50% of visit consisting of counseling and review of plan of care. Atrophic vaginitis 78450 000 N95.2 Dry vulva tissues on examSugges warren using VCG's and vegetable based moisturize r DAILY 1-2x to enhance the quality of the vulva skin. If this does not fully help can return to discuss if vag estrogen is needed as an addition to this interventi on.Underst anding verbalized . [id number] Robert Everett MD [facility] [address],[facility] [address] 04/28/2024 09:03:17 04/28/2024 11:38:51 Lesion of vulva 299701849 N90.89 excision of 2 vulvar lesions was performed. They were in the lower suprapubic area /Months. She tolerated well. She will follow up in 10 days. [id number] Robert Everett MD [facility] [address] [address] 05/14/2024 16:15:28 05/14/2024 18:16:36 Seborrheic keratosis 488419699 L82.1 sutures were removed. Without complicati ons. She tolerated well. Health Concerns Section Related Observation LastModified by Organization Detai ls LastModified Time None Recorded Concern Status LastModified by Organization Details LastModified Time None Recorded Advance Directives Directive None Recorded Payers Encounter Date Sequence Insurance Name Policy Number Policy Calles Covered Member ID Calles Member ID Guarantor Name 01/23/2022 1 [facility] (MEDICARE REPLACEMENT/A DVANTAGE - HMO) Lashonda Ham Eloy [id number] Lashonda Eloy 03/13/2023 1 [employer] (MEDICARE REPLACEMENT/A DVANTAGE - HMO) [id number] Lashonda Ham Eloy [id number] Lashonda Eloy 04/09/2023 1 [employer] (MEDICARE REPLACEMENT/A DVANTAGE - HMO) [id number] Lashonda Ham Eloy [id number] Lashonda Eloy 04/28/2024 1 [employer] (MEDICARE REPLACEMENT/A DVANTAGE - HMO) [id number] Lashonda Ham Eloy [id number] Lashonda Eloy 05/14/2024 1 [employer] (MEDICARE REPLACEMENT/A DVANTAGE - HMO) [id number] Lashonda Ham Eloy [id number] Lashonda Eloy Notes Date Note Type Note Provider Name and Address Organization Details Recorded Time 01/23/2022 text/html this patient is a 66-year-old female presents for vulvar irritation and vulvar lesion. The suprapubic area near the months inferior mons. She has a seborrheic keratosis. Was examined. There was also a hemangioma in that same space. Is very close to the midline. We talked about treatment. Talked about excision primarily. Patient has survived endometrial cancer. She has asked about Pap smear. She needs Pap smear the vaginal cuff for endometrial cancer recurrence. She has vulvar irritation. We will treat for yeast infection. It has only been occurring for 1 week. One Diflucan did not help. We agreed 5 nights of fluconazole. Robert Everett MD [address], [place], [address], [facility] 01/23/2022 17:42:08 04/09/2023 text/html Lashonda is a 67yo postmenopausal female with hysterectomy who is here today with concerns of pelvic pressure/changes in urinary habits and some ext vag itching. Her PCP recently gave her some diflucan for possible yeast infection.Ext skin is always a little itchy .Not SA Neg pain of abd/pelvis/flankNeg GI sx'sNeg N/V/F/C/DNeg Vag d/c, odor, irritation :+frequencyUncerta in emptying bladder fully; and wonders if this is why she has a feeling to go so much. Neg nocturia+KIMBERLEY (only drops/dribbles)Neg UUI--but questions if she waited when the urge hits that she would have this problem.Neg bladder painNeg bulge at vag opening Emilie Haas, [facility]- [address], [place], [address], [facility] 04/10/2023 09:11:04 04/28/2024 text/html 68-year-old fema le who presents for excision of 2 lesions on the pubic mons. The procedure was explained to the patient in detail. She understands the procedure. She understands the risks, benefits, and alternatives. She has completed the informed consent process and is ready to proceed. Robert Everett MD [address], [place], [address], [facility] 04/28/2024 11:36:32 05/14/2024 text/html 68-year-old fema le presents for suture removal. The patient understands the procedure. The procedure was described to the patient in great detail. the patient also understands the risks. The risks were also explained in detail. She understands that injuries May occur during surgery. She understands these injuries can result in hospitalization, more surgery, and severe illness. She understands there is risk of hemorrhage and infection. Robert Everett MD [address], [place], [address], [facility] 05/14/2024 18:08:21 OBGyn Episode Ob Episode Information Episode Created Date Number of Fetuses Patient Bloodtype Patient rh Status Prepregnancy Weight lbs Domestic Partner Domestic Partner Phone Father Name Paint Dipper Status 01/24/20 22 2 CLOSED Fetus Data First Name Last Name Admitted to NICU Weight (g) Sex Living Outcome Pediatric Complications Fetus ID Race Codes Race Delivery Type , Spontane ous [id number] , Spontane ous [id number] Farhat Calculation Initial Farhat Date Initial Exam Date Initial Exam Provider Initial Ultrasound Date Last Menstrual Period Date Ultra Sound Weeks Gestation 0 Eighteen To Twenty Week Farhat Update Ultra Sound Date Fundal Height At Umbil Quickening Date Ultra Sound Latest Weeks Gestation Final Farhat Confirmed By Final Farhat Confirmed Date Final Farhat Date Ultra Sound Latest Days Gestation 0 0 Menstrual History Last Menstrual Date Menses Monthly On Bcp Conception Prior Menses Frequency Hcg Plus Date Menarche Onset Age Delivery Information Delivery Date Delivery Type Labor Anesthesia Weeks Gestation Incision Type Labor Labor Length Hrs Delivered By Post Complications Tubal Sterilization Discharge Date Comments 4 Discharge Information Feeding Method Contraceptive Method Maternal HG B and HCT Levels Ob Episode Information Episode Created Date Number of Fetuses Patient Bloodtype Patient rh Status Prepregnancy Weight lbs Domestic Partner Domestic Partner Phone Father Name Paint Dipper Status 01/24/20 1 DELETED Farhat Calculation Initial Farhat Date Initial Exam Date Initial Exam Provider Initial Ultrasound Date Last Menstrual Period Date Ultra Sound Weeks Gestation 0 Eighteen To Twenty Week Farhat Update Ultra Sound Date Fundal Height At Umbil Quickening Date Ultra Sound Latest Weeks Gestation Final Farhat Confirmed By Final Farhat Confirmed Date Final Farhat Date Ultra Sound Latest Days Gestation 0 0 Menstrual History Last Menstrual Date Menses Monthly On Bcp Conception Prior Menses Frequency Hcg Plus Date Menarche Onset Age Delivery Information Delivery Date Delivery Type Labor Anesthesia Weeks Gestation Incision Type Labor Labor Length Hrs Delivered By Post Complications Tubal Sterilization Discharge Date Comments 4 Discharge Information Feeding Method Contraceptive Method Maternal HG B and HCT Levels Ob Episode Information Episode Created Date Number of Fetuses Patient Bloodtype Patient rh Status Prepregnancy Weight lbs Domestic Partner Domestic Partner Phone Father Name Paint Dipper Status 01/24/20 1 CLOSED Fetus Data First Name Last Name Admitted to NICU Weight (g) Sex Living Outcome Pediatric Complications Fetus ID Race Codes Race Delivery Type 3401.94 F Full Term [id number] Repeat Farhat Calculation Initial Farhat Date Initial Exam Date Initial Exam Provider Initial Ultrasound Date Last Menstrual Period Date Ultra Sound Weeks Gestation 0 Eighteen To Twenty Week Farhat Update Ultra Sound Date Fundal Height At Umbil Quickening Date Ultra Sound Latest Weeks Gestation Final Farhat Confirmed By Final Farhat Confirmed Date Final Farhat Date Ultra Sound Latest Days Gestation 0 0 Menstrual History Last Menstrual Date Menses Monthly On Bcp Conception Prior Menses Frequency Hcg Plus Date Menarche Onset Age Delivery Information Delivery Date Delivery Type Labor Anesthesia Weeks Gestation Incision Type Labor Labor Length Hrs Delivered By Post Complications Tubal Sterilization Discharge Date Comments 5 40 Jaison [email or web address] Discharge Information Feeding Method Contraceptive Method Maternal HG B and HCT Levels Ob Episode Information Episode Created Date Number of Fetuses Patient Bloodtype Patient rh Status Prepregnancy Weight lbs Domestic Partner Domestic Partner Phone Father Name Paint Dipper Status 01/24/20 22 1 CLOSED Fetus Data First Name Last Name Admitted to NICU Weight (g) Sex Living Outcome Pediatric Complications Fetus ID Race Codes Race Delivery Type , Spontane ous [id number] Farhat Calculation Initial Farhat Date Initial Exam Date Initial Exam Provider Initial Ultrasound Date Last Menstrual Period Date Ultra Sound Weeks Gestation 0 Eighteen To Twenty Week Farhat Update Ultra Sound Date Fundal Height At Umbil Quickening Date Ultra Sound Latest Weeks Gestation Final Farhat Confirmed By Final Farhat Confirmed Date Final Farhat Date Ultra Sound Latest Days Gestation 0 0 Menstrual History Last Menstrual Date Menses Monthly On Bcp Conception Prior Menses Frequency Hcg Plus Date Menarche Onset Age Delivery Information Delivery Date Delivery Type Labor Anesthesia Weeks Gestation Incision Type Labor Labor Length Hrs Delivered By Post Complications Tubal Sterilization Discharge Date Comments 3 Discharge Information Feeding Method Contraceptive Method Maternal HG B and HCT Levels Ob Episode Information Episode Created Date Number of Fetuses Patient Bloodtype Patient rh Status Prepregnancy Weight lbs Domestic Partner Domestic Partner Phone Father Name Paint Dipper Status 01/24/20 22 1 CLOSED Fetus Data First Name Last Name Admitted to NICU Weight (g) Sex Living Outcome Pediatric Complications Fetus ID Race Codes Race Delivery Type 3685.43 5 M Full Term [id number] Primary Farhat Calculation Initial Farhat Date Initial Exam Date Initial Exam Provider Initial Ultrasound Date Last Menstrual Period Date Ultra Sound Weeks Gestation 0 Eighteen To Twenty Week Farhat Update Ultra Sound Date Fundal Height At Umbil Quickening Date Ultra Sound Latest Weeks Gestation Final Farhat Confirmed By Final Farhat Confirmed Date Final Farhat Date Ultra Sound Latest Days Gestation 0 0 Menstrual History Last Menstrual Date Menses Monthly On Bcp Conception Prior Menses Frequency Hcg Plus Date Menarche Onset Age Delivery Information Delivery Date Delivery Type Labor Anesthesia Weeks Gestation Incision Type Labor Labor Length Hrs Delivered By Post Complications Tubal Sterilization Discharge Date Comments 7 40 [place] Discharge Information Feeding Method Contraceptive Method Maternal HG B and HCT Levels
--- OUTSIDE RECORDS SUMMARY | 2024-07-22 15:31 | XMS_ITS | Clinical Summary ---
Author Organization [facility] Address [address] [place] [address] Care Team Providers Care Pad Extractor Tender Name Role Phone Robert Everett MD Primary Care Provider [phone] Allergies No known active allergies Medications atorvastatin [...] (01/14/2019): Added automatically from request for surgery [id number] Post-menopausal bleeding 01/14/2019 Overview (01/14/2019): Added automatically from request for surgery [id number] Obesity with body mass index 30 or greater 01/19 Positive antinuclear antibody 01/20/2016 Immunizations Immunization Administration Dates Next Due Influenza, Quadrivalent, Hig h Dose, Preservative Free, Intrr 03/03/2022,06/09/2021,02/04/2020 Influenza, Quadrivalent, Spl it, Intramuscular 03/30/2016 Influenza, Quadrivalent, Spl it, Preservative Free, Intramuscular 04/04/2017 Pfizer SARS-CoV-2 Monovalent Vaccination (12+ Yrs) PURPLE 08/17/2020 Pneumococcal Polysaccharide PPV23 06/09/2021 Tdap 02/08/2020 ZOSTER Recombinant 05/05/2020,02/08/2020 Surgical History Surgery Date Site/Laterality Comments SECTION x2 APPENDECTOMY TONSILLECTOMY DILATION AND CURETTAGE OF UTERUS 01/08/2019 Medical History Medical History Date Comments Anemia Endometrial ca (CMS/HCC) (HCC) 01/17/2019 Hypothyroid Family History Medical History Relation Name Comments Liver cancer Brother Family history of liver cancer - (Added by TW Conv) Prostate cancer Father Family histo ry of malignant neoplasm of prostate - (Added by TW Conv) Diabetes Mother Family history of diabetes mellitus - (Added by TW Conv) Heart attack Mother Family history of myocardial infarction - (Added by TW Conv) Ovarian cancer Mother Ovarian cance r - (Added by TW Conv) Breast cancer Other Family history of malignant neoplasm of breast - Relation: Grandmother (Added by TW Conv) No Known Problems Sister 1 No Known Problems Sister 2 AUTOIMMUNE HEPATITIS Sister 3 Diabetes Son Family history of diabetes mellitus - (Added by TW Conv) Anesthesia problems Neg Hx Relation Name Status Comments Brother Father Mother Other Sister 1 Alive Sister 2 Alive Sister 3 Son Social History Tobacco Use Types Packs/Day Years [...] on file Legal Sex Female 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 Gender Identity Not on file Sexual Orientation Not on file Obstetrics History Para Term AB IAB SAB Ectopic Multiple Livin g Live Births 5 2 2 3 3 2 Date Outcome GA Total Labor Labor/2nd/3rd Weight Sex Type Anes PTL Flores A1 A5 Name Clin Term Term SAB SAB SAB Last Filed Vital Signs Vital Sign Reading Time Taken Comments Blood Pressure 160/86 04/18/2023 11:34 AM JUNIOR SYSTEMS ENGINEER Pulse 68 04/18/2023 11:34 AM JUNIOR SYSTEMS ENGINEER Temperature 36.6 C (97.8 F) 04/18/2023 11:34 AM JUNIOR SYSTEMS ENGINEER Respiratory Rate 16 04/18/2023 11:3 4 AM JUNIOR SYSTEMS ENGINEER Oxygen Saturation 96% 04/18/2023 11: 34 AM JUNIOR SYSTEMS ENGINEER Inhaled Oxygen Concentration - - Weight 99.7 kg (219 lb 14.4 oz) 023 11:34 AM JUNIOR SYSTEMS ENGINEER Height 160 cm (5' 2.99 ) 04/18/2023 11: 34 AM JUNIOR SYSTEMS ENGINEER Body Mass Index 38.96 04/18/2023 11:34 AM JUNIOR SYSTEMS ENGINEER Plan of Treatment Health Maintenance Due Date Last Done Comments Breast Cancer Screening-Mammogram 1954 Depression Screening 1954 Fall Risk Assessment 1955 Hepatitis C Screening 1955 Osteoporosis Screening-Bone Density Scan 1954 Hepatitis B Screening 1972 Well Visit 65+ 09/11/2019 Pneumococcal vaccine 65+ (2 of 2 - PCV) 06/09/2022 06/09/2021 Covid-19 Vaccine (5 2023-2 5 season) 2024 03/03/2022, 03/11/2021, 08/17/2020, Additional history exists Influenza Vaccine (#1) 2024 2, 06/09/2021, 02/04/2020, Additional history exists Colon Cancer Screening-Colonoscopy 02/06/2029 02/06/2019 DTaP/Tdap/Td Vaccine (2 - Td or Tdap) 02/07/2030 02/08/2020 Colon Cancer Screening-CT Colonography Discontinued 02/06/2019 Colon Cancer Screening-DNA Stool Discontinued 02/07/20 19 Colon Cancer Screening-FIT Discontinued 02/06/2019 Colon Cancer Screening-Sigmoidoscopy Discontinued 02/06/2019 Zoster Vaccine Completed 05/05/2020, 02/08/2020 Procedures Procedure Name Priority Date/Time Associated Diagnosis [...] Female Attending MD: Shahzad Hylton M.D. Room: [place] [address] Note Status: Finished Cloth Checker Override Procedure: Colonoscopy Indications: Screening for colorectal [...] Thescope was passed under direct vision. The [id number] introduced through the anus and advanced to the cecum, identified by appendiceal orifice and ileocecal valve.The colonoscopy was performed without difficulty. Thepatient tolerated the procedure well. The quality of the bowel preparation was evaluated using the BBPS ([place] Bowel Preparation Scale) with scores of: Right [...] Most Recently Relevant to Health Maintenance Insurance [facility] [employer] [employer] Address: [address] [place] [address] [employer] CHO[employer] Address: [address] [place] [address] [employer] MED[employer]ARE GOLD [facility] HMO REF Advance Directives For more information, please contact: [phone] * Full Code (Latest Code Status on File) Date Activated Date Inactivated Comments 02/13/2019 5:34 PM 02/14/2019 4:01 PM * Full Code Date Activated Date Inactivated Comments 02/06/2019 7:38 AM 02/06/2019 1:33 PM Care Teams Pad Extractor Tender Relationship Specialty Start Date End Date Robert Everett MD [address] [place] [address] PCP - General 01/23/19
--- OUTSIDE RECORDS SUMMARY | 2024-07-22 15:31 | XMS_ITS | Continuity of Care Document ---
Author Organization [facility] Address [address] [place] [address] Phone Care Team Providers Care Mixing And Dispensing Supervisor Name Role Phone Mitul Garcia MD Unavailable [...] Diagnoses Date Provider Providers Copied on Encounter [facility], [address], [place], [place], [id number], tel:[phone] [facility] No Information Jose Bauman. [address] [place], [place], [id number], [place]. tel:[phone] Referring Provider: Lorenzo Suh DO [address], [place], [address]. tel:[phone] [facility], [address], [place], [place], [id number], [place] tel:[phone] [facility] No Information Ramesh Bullard. [address] , [place], [place], [id number], [place]. tel:[phone] Referring Provider: Lorenzo Suh DO [address], [place], [address]. tel:[phone] Family History Family Member Type Diagnosis Age At Onset No Information Payers Payer name Insurance type Covered constitution party ID Authoriza timerry(s) [facility] MDCR COMPLETE HMO [id number] Social History Type Description Quantity Date Captured [...]
--- OUTSIDE RECORDS SUMMARY | 2024-07-22 15:31 | XMS_ITS ---
Author Organization [facility] Address [address] [place] [address] Care Team Providers Care Card Cutter Helper Name Role Phone Robert Everett MD Primary Care Provider [phone] Active Problems Problem Noted Date Diagnosed Date Osteoarthritis 03/04/2019 Autoimmune hepatitis (CMS/HCC) 01/14/2019 Chronic constipation 01/14/2019 Nodular radiologic density 01/14/2019 Knee pain 01/14/2019 Pain of right lower extremity 01/14/2019 Sinusitis 01/14/2019 Symptoms involving urinary system 01/14/2019 Tear of meniscus of knee 01/14/2019 Endometrial cancer (CMS/HCC) 01/14/2019 Overview (01/14/2019): Added automatically from request for surgery [id number] Post-menopausal bleeding 01/14/2019 Overview (01/14/2019): Added automatically from request for surgery [id number] Obesity with body mass index 30 or greater 01/19 Positive antinuclear antibody 01/20/2016 Current Treatment and Therapy Plans No current plan information found. Past Treatment and Therapy Plans No past plan information found. Lifetime Dose Tracking * Chemical Lifetime Dose Automatic Entry Manual Entr y DLP 1,822 mGycm 1,822 mGycm 0 mGycm
== END 2024-07-22 15:28 | disposition home or self-care (01) ==
PROVIDERS: PCP Physician Assistant; Visit Provider Physician Assistant
DX: Z12.31 Encounter for screening mammogram for malignant neoplasm of breast (principal)
CPT/HCPCS: 77063; 77067

== ENCOUNTER 2025-02-11 17:12 | Emergency (ER) | payer MEDICARE, SELFPAY ==
--- OUTSIDE RECORDS SUMMARY | 2020-11-10 09:45 | XMS_ITS | Continuity of Care Document ---
Author Organization [facility] Address [address] [place] [address] Phone Care Team Providers Care Furnace Clerk Name Role Phone Mitul Garcia MD Unavailable Unavailable Procedures Procedure Date INJECTION ANESTHETIC AND/OR STERIOD, TRANS EPIDURAL LUMB OR SACRAL,, SINGLE LEVE SURGICAL TRAY LOW OSMOLAR CONTRAST (200 TO 299 MG IODI NE) DEPO-MEDROL 80MG MRI, LUMBAR SPINE W/O CONTRAST Advance Directives Directive Yes / No Effective Date File Name No Information Encounters Encounter Description Practice Location Reason(s) For Visit Diagnoses Date Provider Providers Copied on Encounter [facility], [address], [place], [place], [address], tel:[phone] [facility] No Information Jose Bauman. [address] [place], [place], [address], [place]. tel:[phone] Referring Provider: Lorenzo Suh DO [address] [facility], [place], [address]. tel:[phone] [facility] [address], [place], [place], [address], [place] tel:[phone] [facility] No Information Ramesh Bullard. [address] , [place], [place], [address], [place]. tel:[phone] Referring Provider: Lorenzo Suh DO [address], [place], [address]. tel:[phone] Family History Family Member Type Diagnosis Age At Onset No Information Payers Payer name Insurance type Covered alliance party ID Authoriza timerry(s) [facility] MDCR COMPLETE HMO [id number] Social History Type Description Quantity Date Captured Comments Sex Female Smoking Status No Information Chief Complaint And Reason For Visit No Information Reason For Referral Reason For Referral No Information History Of Present Illness Encounter Date Complaint History Of Prese nt Illness No Information Functional Status Date Functional Assessmen t No Information Instructions Date Instruction Additional Infor mation No Information Assessments Type Assessment Date No Information Patient Care Teams Name Effective Dates (start - stop) Status Members No Information
--- OUTSIDE RECORDS SUMMARY | 2020-11-10 09:45 | XMS_ITS | Continuity of Care Document ---
Author Organization [facility] Address [address] [place] [address] Phone Care Team Providers Care Rehanger Name Role Phone Mitul Garcia MD Unavailable [...] Diagnoses Date Provider Providers Copied on Encounter [facility], [address], [place], [place], [address], tel:[phone] [facility] No Information Jose Bauman. [address] [place], [place], [address], [place]. tel:[phone] Referring Provider: Lorenzo Suh DO [address] [facility], [place], [address]. tel:[phone] [facility], [address], [place], [place], [address], [place] tel:[phone] [facility] No Information Ramesh Bullard. [address] , [place], [place], [address], [place]. tel:[phone] Referring Provider: Lorenzo Suh DO [address], [place], [address]. tel:[phone] Family History Family Member Type Diagnosis Age At Onset No Information Payers Payer name Insurance type Covered alliance party ID Authoriza timerry(s) [facility] MDCR COMPLETE HMO [id number] Social History Type Description Quantity Date Captured [...]
--- NOTE | ~2025-02-11 | XR_ITS ---
EXAMINATION: XR chest 2V, 02/11/2025 17:46 CDT HISTORY: dyspnea and leg swelling COMPARISON: No comparisons available. Technique: 2 views obtained. Findings: The lungs are clear, no effusion. No pneumothorax. Heart is normal size. Mediastinal and hilar contours are within normal limits. Bony thorax no acute abnormality. Impression: No acute cardiopulmonary abnormality. Reviewed, dictated and finalized at location A. Impression: No acute cardiopulmonary abnormality.
--- OUTSIDE RECORDS SUMMARY | 2025-02-11 17:14 | XMS_ITS | Clinical Summary ---
Author Organization [facility] Address [address] [place] [address] Phone Care Team Providers Care Polo Coach Name Role Phone Destiny Puga APRN, CLEMENTE Primary Care Provider [phone] Medications atorvastatin (LIPITOR) 40 MG Tablet Take 40 mg by mouth daily. Active ibandronate (BONIVA) 150 MG Tablet Take 150 mg by mouth every 30 days. Active ezetimibe (ZETIA) 10 MG Tablet Take 1 Tablet by mouth daily. 12/02/2024 Active fenofibrate micronized 134 MG Capsule Take 134 mg by mouth daily. Active cyanocobalamin (VITAMIN B12) 1000 MCG SL Tablet 1,000 mcg daily. 07/23/2024 Active ergocalciferol (VITAMIN D) 64275 UNIT Capsule Take 1.25 mg by mouth once a week. 11/07/2024 Active Active Problems Problem Noted Date Diagnosed Date Thrombocytopenia 01/30/2025 Encounters Date Type Department Care Team Description 02/05/2025 Results Follow-Up [facility] [address] [place] [phone] Alicia Larry November, PAC VITAMIN B12, FERRITIN, FOLIC ACID (FOLATE), Additional followed-up results: 9 01/30/2025 4:[address] Initial Consult [facility] [address] [place] [phone] Alicia Larry November, PAC Thrombocytopenia (HCC) (Primary Dx) Discharge Disposition: Discharged to home or Selfcare 01/30/2025 2:40 PM [facility] [address] [place] [address] Larry, Alicia November, Thrombocytopenia (HCC) Discharge Disposition: Discharged to home or Selfcare 01/30/2025 Travel from Last 3 Months Family History Medical History Relation Name Comments Cancer Brother Autoimmune Disease Daughter Prostate Cancer Father Cancer Maternal Grandfather Liver Disease Maternal Grandfather Heart Attack Maternal Grandmother Heart Attack Paternal Grandfather Autoimmune Disease Sister Parkinsonism Sister Relation Name Status Comments Brother Daughter Alive Father Maternal Grandfather Maternal Grandmother Paternal Grandfather Sister Social History Tobacco Use Types Packs/Day Years Used Date Smoking Tobacco: Never Smokeless Tobacco: Never Tobacco Cessation:Counseling Given: Not Answered Comments Unknown Sex and Gender Information Value Date Recorded Sex Assigned at Not on file Legal Sex Female 10:42 AM CDT Gender Identity Not on file Sexual Orientation Not on file Last Filed Vital Signs Vital Sign Reading Time Taken Comments Blood Pressure 134/76 01/30/2025 3:19 PM CDT Pulse 61 01/30/2025 3:19 PM CDT Temperature 37 C (98.6 F) 01/30/2025 3:19 PM CDT Respiratory Rate 18 01/30/2025 3:19 PM CDT Oxygen Saturation 97% 01/30/2025 3:19 PM CDT Inhaled Oxygen Concentration - - Weight 108.7 kg (239 lb 9.6 oz) 01/30/2025 3:19 PM CDT Height 160 cm (5' 3) 01/30/2025 3:19 PM CDT Body Mass Index 42.44 01/30/2025 3:19 PM CDT Plan of Treatment Upcoming Encounters Date Type Department Care Team (Late st Contact Info) Description 02/13/2025 3:40 PM CDT Office Visit [facility] [address] [place] [address] Alicia Larry November, [place] [address] Discharge Disposition: Discharged to home or Selfcare Health Maintenance Due Date Last Done Comments DEXA Bone Density 1955 Hepatitis C Virus (HCV) Screening 1955 Mammogram 1955 Cologuard 09/11/1999 Immunochemical Fecal Occult Blood 09/11/1999 Respiratory Syncytial Virus (RSV) Immunization (Adult) (1 - Risk 60-74 years 1-dose series) 2014 Influenza Immunization (#1) 2025 09/0 12/2023, 02/19/2023, 03/03/2022, Additional history exists SARS-COV-2 Immunization (2023- season) 2025 02/09/2024, 03/03/2022, 03/11/2021, Additional history exists Colonoscopy 02/06/2029 02/06/2019 Colorectal Cancer Screening 02/06/2029 Zoster Immunization Completed 05/05/2020, Pneumococcal Immunization (50+ years) Completed 07/05/2022, 06/09/2021 TdaP Immunization Completed 07/05/2022, 02/08/2020 Hepatitis B Immunization Aged Out No longer eligible based on patient's age to complete this topic Human Papillomavirus (HPV) Immunization Aged Out No longer eligible based on patient's age to complete this topic Meningococcal Immunization (ACWY) Aged Out No longer eligible based on patient's age to complete this topic Rotavirus Immunization Aged Out No lo nger eligible based on patient's age to complete this topic Procedures Procedure Name Priority Date/Time Associated Diagnosis Comments CBC WITH AUTO DIFFERENTIAL Routine 01/30/2025 3:57 PM CDT Thrombocytopenia (HCC) PERIPHERAL BLOOD, FLOW CYTOMETRY Routine 01/30/2025 3:57 PM CDT Thrombocytopenia (HCC) IRON,TRANSFERN,CALC.TIB C,%SAT Routine 01/30/2025 3:57 PM CDT Thrombocytopenia (HCC) ERYTHROCYTE SEDIMENTATION RATE (ESR) Routine 01/30/2025 3:57 PM CDT Thrombocytopenia (HCC) CMP (COMPREHENSIVE METABOLIC PANEL) Routine 01/30/2025 3:57 PM CDT Thrombocytopenia (HCC) IMMUNOFIXATION W/ ELECTROPHORESIS SERUM Routine 01/30/2025 3:57 PM CDT Thrombocytopenia (HCC) FREE KAPPA & LAMBDA LIGHT CHAINS SERUM Routine 01/30/2025 3:57 PM CDT Thrombocytopenia (HCC) RETICULOCYTE COUNT (RETIC) Routine 01/30/2025 3:57 PM CDT Thrombocytopenia (HCC) LACTATE DEHYDROGENASE (LD) Routine 01/30/2025 3:57 PM CDT Thrombocytopenia (HCC) FOLIC ACID (FOLATE) Routine 01/30/2025 3 :57 PM CDT Thrombocytopenia (HCC) FERRITIN Routine 01/30/2025 3:57 PM CDT Thrombocytopenia (HCC) VITAMIN B12 Routine 01/30/2025 3:57 PM CDT Thrombocytopenia (HCC) COMPLETE BLOOD COUNT (CBC) WITH DIFF Routine 01/30/2025 3:57 PM CDT Thrombocytopenia (HCC) from Last 3 Months Results * IRON,TRANSFERN,CALC.TIBC,%SAT (01/30/2025 3:57 PM CDT) IRON 69 25 - 156 mcg/dL 01/30/2025 4:30 PM CDT [facility] TRANSFERRIN 275 173 - 360 mg/dL 01/30/2025 4:30 PM CDT [facility] TIBC, CALCULATED 344 265 - 497 mcg/dL 01/30/2025 4:30 PM CDT [facility] % SATURATION * 20 15 - 62 % 01/30/2025 4:30 PM CDT [facility] Blood Venipuncture / Unknown 01/30/2025 3:57 PM CDT 01/30/2025 3:57 PM CDT us Alicia Larry PAC CHEMISTRY ORDERABLES Emilia l Result [facility] [address] [place] [address] * (ABNORMAL) CBC WITH AUTO DIFFERENTIAL (01/30/2025 3:57 PM CDT) WBC 4.85 4.00 - 12.00 10(3)/mcL 01/30/2025 4:12 PM CDT [facility] RBC 3.57(L) 3.80 - 5.30 10(6)/mcL 01/30/2025 4:12 PM CDT [facility] HEMOGLOBIN (HGB) 11.1(L) 12.0 - 15.8 g/dL 01/30/2025 4:12 PM CDT [facility] HEMATOCRIT (HCT) 33.4(L) 36.0 - 47.0 % 01/30/2025 4:12 PM CDT [facility] MCV 93.6 82.0 - 96.0 fL 01/30/2025 4:12 PM CDT [facility] MCH 31.1 26.0 - 34.0 pg 01/30/2025 4:12 PM CDT [facility] MCHC 33.2 31.0 - 36.0 g/dL 01/30/2025 4:12 PM CDT [facility] PLATELET COUNT 129(L) 140 - 440 10(3)/mcL 01/30/2025 4:12 PM CDT [facility] RDW 13.2 11.8 - 15.5 % 01/30/2025 4:12 PM CDT [facility] MPV 11.1 9.7 - 12.4 fL 01/30/2025 4:12 PM CDT [facility] NEUTROPHILS 46.6(L) 47.0 - 73.0 % 01/30/2025 4:12 PM CDT [facility] LYMPHOCYTES 40.8 18.0 - 42.0 % 01/30/2025 4:12 PM CDT [facility] MONOCYTES 8.9 4.0 - 12.0 % 01/30/2025 4:12 PM CDT [facility] EOSINOPHILS 2.1 0.0 - 5.0 % 01/30/2025 4:12 PM CDT [facility] BASOPHILS 1.4(H) 0.0 - 1.0 % 01/30/2025 4:12 PM CDT [facility] ABSOLUTE NEUTROPHILS 2.26 1.60 - 7.70 10(3)/mcL 01/30/2025 4:12 PM CDT [facility] ABSOLUTE LYMPHOCYTES 1.98 1.30 - 3.20 10(3)/[facility] 01/30/2025 4:12 PM CDT [facility] ABSOLUTE MONOCYTES 0.43 0.20 - 1.00 10(3)/[facility] 01/30/2025 4:12 PM CDT [facility] ABSOLUTE EOSINOPHIL 0.10 0.00 - 0.40 10(3)/[facility] 01/30/2025 4:12 PM CDT [facility] ABSOLUTE BASOPHILS 0.07 0.00 - 0.10 10(3)/[facility] 01/30/2025 4:12 PM CDT [facility] NRBC PER 100 WBC 0 01/31/20 25 4:12 PM CDT [facility] Blood Venipuncture / Unknown 01/30/2025 3:57 PM CDT 01/30/2025 3:57 PM CDT us Alicia Larry PAC HEMATOLOGY ORDERABLES Fin al Result [facility] [address] [place] [address] * PERIPHERAL BLOOD, FLOW CYTOMETRY (01/30/2025 3:57 PM CDT) Pathologist [facility] FINAL DIAGNOSIS Peripheral blood, flow cytometry analysis: No abnormal lymphoid or progenitor cell population is detected. 4:04 PM CDT [facility] at 1604 CDT Specimen Source Received in an EDTA anticoagulated tube is 2.5 mL of peripheral blood. 4:04 PM CDT [facility] Microscopic Description Evaluation of a Nicolas stained peripheral smear shows small lymphocytes. Specimen processed and evaluated at [facility], [place], [place]. This document was completed utilizing speech recognition software. Grammatical errors, random word insertions, pronoun errors, and incomplete sentences are an occasional consequence of this system due to software limitations, ambient noise, and hardware issues. Any formal questions or concerns about the content, text or information contained within the body of this dictation should be directly addressed to the provider for clarification. 4:04 PM CDT [facility] Immunophenotypic Findings Flow cytometric analysis reveals a 37% population of immunophenotypically unremarkable T-cells (CD4:CD8 = 0.7) and a 2% population of polytypic B-cells. Granulocytes and monocytes account for most of the remaining events. 4:04 PM CDT [facility] Phenotyping Markers Utilized Flow markers performed (23): CD2, CD3, CD4, CD5, CD7, CD8, CD10, CD13, CD15, CD19, CD20, CD33, CD34, CD38, CD45, CD56, CD117, CD123, CD200, kappa, lambda, HLA-DR, TCR gamma/delta This test was developed and its performance characteristics determined by [facility]. It has not been cleared or approved by the U.S. Food and Drug Administration. 4:04 PM CDT [facility] Case Report Flow Cytometry Repor t Case: [id number] Authorizing Provider: Alicia Larry PAC Collected: 01/30/2025 03:57 PM Ordering Location: [facility] Received: 01/30/2025 03:57 PM [facility] On[facility] Pathologist: Chay Urbina MD Specimen: Blood 4:04 PM CDT [facility] Blood BLOOD SPECIMEN / Unknown Venipuncture / Unknown 01/30/2025 3:57 PM CDT 01/30/2025 3:57 PM CDT [facility] PATHOLOGY/CYTOLOGY ORDERA BLES Final Result [facility] [address] [place] [address], [place] * (ABNORMAL) FREE KAPPA & LAMBDA LIGHT CHAINS SERUM (01/30/2025 3:57 PM CDT) Free Chaplin Lt Chn 22.22(H) 3.30 - 19.40 mg/L 02/03/2025 10:04 AM CDT [facility] Free Lambda Lt Chn 20.42 5.71 - 26.30 mg/L 02/03/2025 10:04 AM CDT [facility] free dagoberto valdivia ratio 1.09 0.26 - 1.65 02/03/2025 10:04 AM CDT [facility] Blood Venipuncture / Unknown 01/30/2025 3:57 PM CDT 01/30/2025 3:57 PM CDT [facility] CHEMISTRY ORDERABLES Emilia l Result Performing Organization Address City/[facility]/ZIP Co de Phone Number [facility] [address] [place] [address], [place] * (ABNORMAL) VITAMIN B12 (01/30/2025 3:57 PM CDT) VITAMIN B12 1,315(H) 213 - 816 pg/mL 01/30/2025 5:00 PM CDT [facility] Blood Venipuncture / Unknown 01/30/2025 3:57 PM CDT 01/30/2025 3:57 PM CDT [facility] PAC CHEMISTRY ORDERABLES Emilia l Result [facility] [address] [place] [address] * ERYTHROCYTE SEDIMENTATION RATE (ESR) (01/30/2025 3:57 PM CDT) ESR (SED RATE, ERYTHROCYTE SEDIMENTATION RATE) 2 <30 mm/h 01/30/2025 4:13 PM CDT [facility] Comment: Patients presenting with increased level of fibrinogen, gamma globulins, or abnormally shaped RBCs could affect the results for the erythrocyte sedimentation rate (ESR). Results should be clinically correlated. Blood Venipuncture / Unknown 01/30/2025 3:57 PM CDT 01/30/2025 3:57 PM CDT [facility] HEMATOLOGY ORDERABLES Fin al Result Performing Organization Address [facility]/ZIP Co de Phone Number [facility] [address] [place] [address] * RETICULOCYTE COUNT (RETIC) (01/30/2025 3:57 PM CDT) RETICULOCYTES 1.6 0.5 - 2.0 % 01/30/2025 4:12 PM CDT [facility] Blood Venipuncture / Unknown 01/30/2025 3:57 PM CDT 01/30/2025 3:57 PM CDT [facility] PAC HEMATOLOGY ORDERABLES Fin al Result [facility] [address] [place] [address] * LACTATE DEHYDROGENASE (LD) (01/30/2025 3:57 PM CDT) LDH 195 125 - 220 U/L 01/30/2025 4:30 PM CDT [facility] Blood Venipuncture / Unknown 01/30/2025 3:57 PM CDT 01/30/2025 3:57 PM CDT us Alicia Larry PAC CHEMISTRY ORDERABLES Emilia brandon Result [facility] [address] [place] [address] * (ABNORMAL) IMMUNOFIXATION W/ ELECTROPHORESIS SERUM (01/30/2025 3:57 PM CDT) TOTAL PROTEIN 6.3 6.0 - 8.0 g/dL 02/04/2025 10:21 AM CDT [facility] % ALBUMIN 58.0 55.8 - 66.7 % 02/04/2025 10:21 AM CDT [facility] ALBUMIN SERUM 3.7 2.5 - 5.4 g/dL 02/04/2025 10:21 AM CDT [facility] % ALPHA 1 GLOBULIN 3.1 2.9 - 4.9 % 02/04/2025 10:21 AM CDT [facility] ALPHA 1 0.2 0.2 - 0.4 g/dL 02/04/2025 10:21 AM CDT [facility] % ALPHA 2 GLOBULIN 7.4 7.1 - 11.8 % 02/04/2025 10:21 AM CDT [facility] ALPHA 2 0.5 0.5 - 1.0 g/dL 02/04/2025 10:21 AM CDT [facility] % BETA 15.0(H) 8.4 - 13.1 % 02/04/2025 10:21 AM CDT [facility] BETA-GLOBULIN 0.9 0.5 - 1.1 g/dL 02/04/2025 10:21 AM CDT [facility] % GAMMA GLOBULIN 16.4 11.1 - 18.8 % 02/04/2025 10:21 AM CDT [facility] GAMMA 1.0 0.7 - 1.5 g/dL 02/04/2025 10:21 AM CDT [facility] IMMUNOGLOBULIN G 1,061 552 - 1,631 mg/dL 02/04/2025 10:21 AM CDT [facility] IMMUNOGLOBULIN A 160 69 - 517 mg/dL 02/04/2025 10:21 AM CDT [facility] IMMUNOGLOBULIN M 87 33 - 293 mg/dL 02/04/2025 10:21 AM CDT [facility] INTERPRETATION SERUM No abnormal protein band is detected by serum protein electrophoresis. Serum immunofixation electrophoresis is negative for monoclonal immunoglobulins. Reviewed by Jason Murdock, Ph.D. 02/04/2025 10:21 AM CDT [facility] A/G RATIO, SERUM 1.4 02/05/20 10:21 AM CDT [facility] Blood Venipuncture / Unknown 01/30/2025 3:57 PM CDT 01/30/2025 3:57 PM CDT Narrative [facility] - 02/04/2025 10:21 AM CDT Reviewed by Mercedes Moy M.D. [facility] PAC CHEMISTRY ORDERABLES Emilia l Result [facility] [address] [place] [address], * (ABNORMAL) FOLIC ACID (FOLATE) (01/30/2025 3:57 PM CDT) Pathologist [facility] FOLATE 6.1(L) 7.0 - 31.4 ng/mL 01/30/2025 5:00 PM CDT [facility] IS THE PATIENT REQUIRED TO BE FASTING? No 01/30/2025 5:00 PM CDT [facility] Blood Venipuncture / Unknown 01/30/2025 3:57 PM CDT 01/30/2025 3:57 PM CDT [facility] PAC CHEMISTRY ORDERABLES Emilia l Result [facility] [address] [place] [address] * FERRITIN (01/30/2025 3:57 PM CDT) FERRITIN 177 5 - 204 ng/mL 01/30/2025 4:46 PM CDT [facility] Blood Venipuncture / Unknown 01/30/2025 3:57 PM CDT 01/30/2025 3:57 PM CDT Alicia Larry PAC CHEMISTRY ORDERABLES Emilia l Result [facility] [address] [place] [address] * (ABNORMAL) CMP (COMPREHENSIVE METABOLIC PANEL) (01/30/2025 3:57 PM CDT) Pathologist [facility] SODIUM 142 136 - 145 mmol/L 01/30/2025 4:30 PM CDT [facility] POTASSIUM 3.7 3.5 - 5.1 mmol/L 01/30/2025 4:30 PM CDT [facility] CHLORIDE 112(H) 98 - 107 mmol/L 01/30/2025 4:30 PM CDT [facility] CO2, VENOUS 22 22 - 30 mmol/L 01/30/2025 4:30 PM CDT [facility] ANION GAP 11.7 <18.0 mmol/L 01/30/2025 4:30 PM CDT [facility] GLUCOSE 115(H) 70 - 99 mg/dL 01/30/2025 4:30 PM CDT [facility] BUN 15 10 - 20 mg/dL 01/30/2025 4:30 PM CDT [facility] CREATININE, BLOOD 0.79 0.60 - 1.00 mg/dL 01/30/2025 4:30 PM CDT [facility] BUN/CREATININE RATIO 19 12 - 20 ratio 01/30/2025 4:30 PM CDT [facility] TOTAL PROTEIN 6.6 6.0 - 8.0 g/dL 01/30/2025 4:30 PM CDT [facility] ALBUMIN 4.0 3.5 - 5.0 g/dL 01/30/2025 4:[address] [facility] A/G RATIO 1.5 1.0 - 2.2 01/30/2025 4:30 PM CDT [facility] CALCIUM 9.0 8.7 - 10.5 mg/dL 01/30/2025 4:30 PM T [facility] T BILI 0.5 0.2 - 1.2 mg/dL 01/30/2025 4:[address] [facility] SGOT (AST) 33 <43 U/L 01/30/2025 4:[address] [facility] SGPT (ALT) 32 <56 U/L 01/30/2025 4:[address] [facility] ALKALINE PHOSPHATASE 41 40 - 150 U/L 01/30/2025 4:[address] [facility] IS THE PATIENT REQUIRED TO BE FASTING? No 01/30/2025 4:[address] [facility] GFR, ESTIMATED >60 >=60 01/30/2025 4:[address] [facility] Comment: Creatinine Clearance is the preferred criteria for selecting drug dose adjustments in renally impaired patients. The GFR is provided as additional pertinent clinical information. GFR is reported in mL/min/1.73 sq m. Calculation based on the 2020 Chronic Kidney Disease Epidemiology Collaboration (CKD-EPI) equation refit without adjustment for race. GFR, EST. >60 >=60 025 4:[address] [facility] Comment: Creatinine Clearance is the preferred criteria for selecting drug dose adjustments in renally impaired patients. The GFR is provided as additional pertinent clinical information. GFR is reported in mL/min/1.73 sq m. Calculation based on the 2009 Chronic Kidney Disease Epidemiology Collaboration (CKD-EPI). GFR, EST. NONAFRICAN >60 >=60 01/30/2025 4:[address] [facility] Comment: Creatinine Clearance is the preferred criteria for selecting drug dose adjustments in renally impaired patients. The GFR is provided as additional pertinent clinical information. GFR is reported in mL/min/1.73 sq m. Calculation based on the 2009 Chronic Kidney Disease Epidemiology Collaboration (CKD-EPI). Blood Venipuncture / Unknown 01/30/2025 3:57 PM CDT 01/30/2025 3:57 PM CDT Alicia Nidia Laron PAC CHEMISTRY ORDERABLES Emilia l Result [facility] [address] [place] [address] from Last 3 Months Insurance MEDICARE C [employer]ET[employer] Care Teams Polo Coach Relationship Specialty Start Date End Date Destiny Puga APRN, WALL AND FLOOR TILER [address] [place] [address] PCP - General Advanced Practice Nurse 01/21/25
--- OUTSIDE RECORDS SUMMARY | 2025-02-11 17:14 | XMS_ITS | Encounter Summary ---
Author Organization [facility] Address [address] [place] [address] Phone Care Team Providers Care Maitre D Name Role Phone Destiny Puga APRN, CNP Primary Care Provider [phone] Encounter Details Date Type Department Care Team (Late st Contact Info) Description 02/05/2025 Results Follow-Up [facility] [address] [place] [phone] Alicia Larry November, PAC [address] [place] [address] VITAMIN B12, FERRITIN, FOLIC ACID (FOLATE), Additional followed-up results: 9 Social History Tobacco Use Types Packs/Day Years Used Date Smoking Tobacco: Never Smokeless Tobacco: Never Comments Unknown Sex and Gender Information Value Date Recorded Sex Assigned at Not on file Legal Sex Female 10:42 AM CDT Gender Identity Not on file Sexual Orientation Not on file documented as of this encounter Plan of Treatment Upcoming Encounters Date Type Department Care Team (Late st Contact Info) Description 02/13/2025 3:40 PM CDT Office Visit [facility] [address] [place] [phone] Alicia Larry November, PAC [address] [place] [address] Discharge Disposition: Discharged to home or Selfcare documented as of this encounter Visit Diagnoses Not on filedocumented in this encounter Care Teams Maitre D Relationship Specialty Start Date End Date Destiny Puga APRN, COST ESTIMATING ENGINEER [address] [place] [address] PCP - General Advanced Practice Nurse 01/21/25 documented as of this encounter
--- OUTSIDE RECORDS SUMMARY | 2025-02-11 17:14 | XMS_ITS | Clinical Summary ---
Author Organization [facility] Address [address] [place] [address] Care Team Providers Care Die Designer Apprentice Name Role Phone Cyril Wright MD Primary Care Provider [phone] Source Comments [facility],non-owned Affiliates and Associated Physician Practices is amultiple site organization consisting of ambulatory clinics and hospital sitesin [place], [place], [place] and [place]. This disclosure is being madepursuant to the Care Everywhere program and may not contain all information available regarding this patient. Last updated 18.[facility] Moe Delo Social History Tobacco Use Types Packs/Day Years Used Date Smoking Tobacco: Never Assessed Comments Unknown Sex and Gender Information Value Date Recorded Sex Assigned at Not on file Legal Sex Female 4:16 AM CDT Gender Identity Not on file Sexual Orientation Not on file Plan of Treatment Health Maintenance Due Date Last Done Comments BONE DENSITY TESTING 1955 COLOGUARD (AGES 45-75) - COL ON CA SCREENING 1954 CT COLONOGRAPHY - COLON CA SCREENING 1954 FIT - COLON CA SCREENING 1955 FLEX SIG - COLON CA SCREENING 1954 LIPID TESTING 1955 MAMMOGRAM 1954 HEPATITIS C SCREENING 09/05/1972 DTAP/TDAP/TD VACCINES (1 - Tdap) 1973 PNEUMOCOCCAL VACCINE 50+ (1 of 1 - PCV) 2004 ZOSTER VACCINE (1 of 2) 2004 COVID-19 VACCINE (2 - 2023-2 5 season) 2024 08/17/2020 DEPRESSION SCREENING 06/04/2024 MEDICARE AWV CALENDAR YEAR 2024 INFLUENZA VACCINE (#1) 2025 , 04/04/2017, 03/30/2016 COLON MONITORING 02/06/2029 02/06/2019 COLONOSCOPY - COLON CA SCREENING 02/06/2029 02/06/2019 Colorectal Cancer Screening 02/06/2029 Respiratory Syncytial Virus (RSV) Vaccine Pt: or over 60 yrs (1 - 1-dose 75+ series) 2029 HEPATITIS B VACCINE Aged Out No longe r eligible based on patient's age to complete this topic HIB VACCINE Aged Out No longer eligi ble based on patient's age to complete this topic HPV VACCINE Aged Out No longer eligi ble based on patient's age to complete this topic MENINGOCOCCAL (Group B) VACCINE SHARED DECISION-MAKING Aged Out No longer eligible based on patient's age to complete this topic MENINGOCOCCAL GROUPS A/C/Y/W VACCINE Aged Out No longer eligible b ased on patient's age to complete this topic Insurance [facility] AETNA MEDICARE ADV SELF PAY NO INSURANCE Member Subscriber Plan / Payer (Ef fective for All Dates) Name:Lashonda Lyons Jitendra Member ID:Not on file Relation to Subscriber:Not on file Name:DOMENICA LYONSA Jitendra Subscriber ID:Not on file (Home) Address: [place] [address] Payer ID:Not on file Group ID:Not on file Type:Self Pay Address: [place], [place] AETNA MEDICARE ADV SELF PAY NO INSURANCE Member Subscriber Plan / Payer (Ef fective for All Dates) Name:Domenica Lyonsa Jitendra Member ID:Not on file Relation to Subscriber:Not on file Name:ELOYLASHONDA Subscriber ID:Not on file (Home) Address: [place] [address] Payer ID:Not on file Group ID:Not on file Type:Self Pay Address: [place], [place] Care Teams Die Designer Apprentice Relationship Specialty Start Date End Date Cyril Wright MD [address] [place] [address] [address] [place] [phone] PCP - General 01/10/19
--- OUTSIDE RECORDS SUMMARY | 2025-02-11 17:14 | XMS_ITS | Clinical Summary ---
Author Organization [facility] Address [address] [place] [address] Care Team Providers Care Application Security Engineer Name Role Phone Robert Everett MD Primary Care Provider [phone] Allergies No known active allergies Medications atorvastatin (LIPITOR) 20 mg tablet 01/10/2022 Active fluconazole (DIFLUCAN) 150 mg tablet 1 TAB X 1 DAY MAY REPEAT IN 3 DAYS NEEDED 04/06/2023 Active Xiidra 5 % dropperette 04/16/2023 Active Active Problems Problem Noted Date Diagnosed Date Osteoarthritis 03/04/2019 Autoimmune hepatitis 01/14/2019 Chronic constipation 01/14/2019 Nodular radiologic density 01/14/2019 Knee pain 01/14/2019 Pain of right lower extremity 01/14/2019 Sinusitis 01/14/2019 Symptoms involving urinary system 01/14/2019 Tear of meniscus of knee 01/14/2019 Endometrial cancer 01/14/2019 Overview (01/14/2019): Added automatically from request for surgery [id number] Post-menopausal bleeding 01/14/2019 Overview (01/14/2019): Added automatically from request for surgery [id number] Obesity with body mass index 30 or [...] Medical History Date Comments Anemia Endometrial ca 01/17/2019 Hypothyroid Family History Medical History Relation Name Comments Liver cancer Brother Family history of liver cancer - (Added by [employer] Conv) Prostate cancer Father Family histo ry of malignant neoplasm of prostate - (Added by TW Conv) Diabetes Mother Family history of diabetes mellitus - (Added by [employer] Conv) Heart attack Mother Family history of [...] on file Legal Sex Female 5:53 AM PRINCIPAL STATISTICAL SCIENTIST Gender Identity Not on file Sexual Orientation [...] Comments Blood Pressure 160/86 04/18/2023 11:34 AM PRINCIPAL STATISTICAL SCIENTIST Pulse 68 04/18/2023 11:34 AM PRINCIPAL STATISTICAL SCIENTIST Temperature 36.6 C (97.8 F) 04/18/2023 11:34 AM PRINCIPAL STATISTICAL SCIENTIST Respiratory Rate 16 04/18/2023 11:3 4 AM PRINCIPAL STATISTICAL SCIENTIST Oxygen Saturation 96% 04/18/2023 11: 34 AM PRINCIPAL STATISTICAL SCIENTIST Inhaled Oxygen Concentration - - Weight 99.7 kg (219 lb 14.4 oz) 023 11:34 AM PRINCIPAL STATISTICAL SCIENTIST Height 160 cm (5' 2.99) 04/18/2023 11: 34 AM PRINCIPAL STATISTICAL SCIENTIST Body Mass Index 38.96 04/18/2023 11:34 AM PRINCIPAL STATISTICAL SCIENTIST Plan of Treatment Health Maintenance Due Date Last Done Comments Breast Cancer Screening-Mammogram 1954 Depression Screening 1954 Fall Risk Assessment 1954 Hepatitis C Screening 1954 Osteoporosis Screening-Bone Density Scan 1954 Hepatitis B Screening 1972 Well Visit 65+ 09/11/2019 Pneumococcal vaccine 65+ (2 of 2 - PCV) 06/09/2022 06/09/2021 Covid-19 Vaccine (5 - 2023-2 5 season) 2024 03/03/2022, 03/11/2021, 08/17/2020, Additional history exists Influenza Vaccine (#1) 2025 , 03/03/2022, 06/09/2021, Additional history exists Colon Cancer Screening-Colonoscopy 02/06/2029 [...] Female Attending MD: Shahzad Hylton M.D. Room: [place] [address] Note Status: Peeled Potato Inspector Override Procedure: Colonoscopy Indications: Screening for colorectal [...] Thescope was passed under direct vision. The [id number] introduced through the anus and advanced to the cecum, identified by appendiceal orifice and ileocecal valve.The colonoscopy was performed without difficulty. Thepatient tolerated the procedure well. The quality of the bowel preparation was evaluated using the BBPS ([place] Bowel Preparation Scale) with scores of: Right [...] Maintenance Insurance ANTHEM ACCESS ANTHEM ACCESS CHOICE AET MEDICARE GOLD ANTHEM ACCESS [facility] MDCR HMO REF Advance Directives For more information, please contact: [phone] * Full Code (Latest Code Status on File) Date Activated Date Inactivated Comments 02/13/2019 5:34 PM 02/14/2019 4:01 PM * Full Code Date Activated Date Inactivated Comments 02/06/2019 7:38 AM 02/06/2019 1:33 PM Care Teams Application Security Engineer Relationship Specialty Start Date End Date Robert Everett MD [address] [place] [address] PCP - General 01/23/19
--- OUTSIDE RECORDS SUMMARY | 2025-02-11 17:14 | XMS_ITS ---
Author Organization [facility] Address [address] [place] [address] Care Team Providers Care Industrial Retrofit Designer Name Role Phone Robert Everett MD Primary Care Provider [phone] Active Problems Problem Noted Date Diagnosed Date Osteoarthritis 03/04/2019 Autoimmune hepatitis 01/14/2019 Chronic constipation 01/14/2019 Nodular radiologic density 01/14/2019 Knee pain 01/14/2019 Pain of right lower extremity 01/14/2019 Sinusitis 01/14/2019 Symptoms involving urinary system 01/14/2019 Tear of meniscus of knee 01/14/2019 Endometrial cancer 01/14/2019 Overview (01/14/2019): Added automatically from request for surgery [id number] Post-menopausal bleeding 01/14/2019 Overview (01/14/2019): Added automatically from request for surgery [id number] Obesity with body mass index 30 or greater 01/19 Positive antinuclear antibody 01/20/2016 Current Treatment and Therapy Plans No current plan information found. Past Treatment and Therapy Plans No past plan information found. Lifetime Dose Tracking * Chemical Lifetime Dose Automatic Entry Manual Entr y DLP 1,822 mGycm 1,822 mGycm 0 mGycm
[2025-02-11 17:24] VITALS: BP 166/91; PULSE 64; RESP 16; TEMP 36.7; O2SAT 99
--- NOTE | 2025-02-11 17:30 | ED_ITS ---
HPI - Extremity Problem General Chief complaint: Extremity Problem,Nontraumatic <Casey Esquivel APRN - Last Filed: 02/11/25 17:32> Stated complaint: L LEG WEEPING <Casey Esquivel APRN - Last Filed: 02/11/25 17:32> Time Seen by Provider: 02/11/25 18:31 <Casey Esquivel APRN - Last Filed: 02/11/25 17:32> Focused HPI: 69-year-old female presents to the ER complaining of bilateral leg swelling and over the last 2 weeks. Patient also reports some shortness of breath but denies any chest pain. Patient says he has gained 10 lb over the last 2 weeks or more last doctor's appointment. Patient reports her left leg is weeping. Patient denies any fevers, cough, congestion, body aches, chills, abdominal pain, nausea, vomiting, diarrhea, or any other symptoms. Patient denies any history of hypertension, diabetes, she is a nonsmoker, and no heart history, no lung disorders. Patient denies any significant past medical history. GENERAL: Well-appearing, well-nourished, and in no acute distress. HEAD: Normocephalic, atraumatic. CHEST: Clear to auscultation. ?No respiratory distress. No adventitious lung sounds. HEART: Regular rate and rhythm.? Midsystolic murmur best heard at the right upper sternal border graded 3/6. No clicks, gallops, rubs. NEURO: ?Alert and oriented x3. MSK: Bilateral lower extremities below the knee: 4+ pitting edema. Left lower extremity is weeping. Patient screened in triage and initial orders placed.? ?Additional care and disposition to be based upon?diagnostic testing and treatment. <Casey Esquivel APRN - Last Filed: 02/11/25 17:32> History of Present Illness HPI Narrative: Agree with HPI <Sanjay Pretty MD - Last Filed: 02/11/25 22:30> Related Data Allergies/Adverse reactions: Allergies Allergy/AdvReac Type Severity Reaction Status Date / Time No Known Allergies Allergy Verified 02/11/25 17:13 <Casey Esquivel APRN - Last Filed: 02/11/25 17:32> Review of Systems 2 Review of Systems: Gen.: Denies fevers or chills Eyes: Denies eye pain or visual change ENT: Denies congestion Respiratory: Denies shortness of breath or cough CV: Denies chest pain or palpitations GI: Denies abdominal pain nausea, emesis or diarrhea denies burning, urgency, frequency or hematuria Musculoskeletal: Denies back pain or muscle pain Neuro: Denies numbness, tingling, weakness or focal weakness Skin: Denies rash Except as documented, all other systems reviewed and negative <Sanjay Pretty MD - Last Filed: 02/11/25 22:30> [facility] Past Medical History Medical History: Medical History Patient denies significant medical history <Casey Esquivel APRN - Last Filed: 02/11/25 17:32> Social History Social History: Social History Smoking status: Never smoker <Casey Esquivel APRN - Last Filed: 02/11/25 17:32> Exam 2 Narrative: APPEARANCE: No acute distress, nontoxic, resting in bed EYES: EOMI HEENT: Normocephalic, atraumatic, OMM RESPIRATORY: No respiratory distress Clear to auscultation bilaterally with no rhonchi wheezing or rales. CARDIOVASCULAR: Regular rate and rhythm without murmurs rubs or gallops. ABDOMINAL: Soft, nontender, nondistended, no rebound or guarding MUSCULOSKELETAl: Moves all extremities. 3+ pitting edema bilateral lower extremities NEURO: Awake and alert. Following commands, speech normal, no focal deficits SKIN:: Warm, dry. No rashes lesions or abrasions PSYCHIATRIC: Normal affect/mood, <Sanjay Pretty MD - Last Filed: 02/11/25 22:30> Course Vital Signs Vital signs: Vital Signs Temperature 98.0 F 02/11/25 17:24 Pulse Rate 64 02/11/25 17:24 Respiratory Rate 16 02/11/25 17:24 Blood Pressure 166/91 H 02/11/25 17:24 Pulse Oximetry 99 02/11/25 17:24 Oxygen Delivery Room Air 02/11/25 17:24 Temperature 98.0 F 02/11/25 17:24 Pulse Rate 54 L 02/11/25 18:30 Respiratory Rate 18 02/11/25 18:30 Blood Pressure 148/73 H 02/11/25 18:30 Pulse Oximetry 98 02/11/25 18:30 Oxygen Delivery Room Air 02/11/25 17:24 <Casey Esquivel APRN - Last Filed: 02/11/25 17:32> Vital Signs Temperature 98.0 F 02/11/25 17:24 Pulse Rate 64 02/11/25 17:24 Respiratory Rate 16 02/11/25 17:24 Blood Pressure 166/91 H 02/11/25 17:24 Pulse Oximetry 99 02/11/25 17:24 Oxygen Delivery Room Air 02/11/25 17:24 Temperature 98.0 F 02/11/25 17:24 Pulse Rate 54 L 02/11/25 18:30 Respiratory Rate 18 02/11/25 18:30 Blood Pressure 148/73 H 02/11/25 18:30 Pulse Oximetry 98 02/11/25 18:30 Oxygen Delivery Room Air 02/11/25 17:24 <Sanjay Pretty MD - Last Filed: 02/11/25 22:30> MDM - Extremity (Nontraumatic) MDM Narrative Medical decision making narrative: 69-year-old female with history of peripheral edema presented to the ED for concerns for weeping area to her left leg. On initial evaluation, patient was in no acute distress, afebrile, hemodynamically stable. She did have a pinpoint area of serous drainage I was extremely slow. There was a gauze placed on top of that that had basically no saturation. Cbc and CMP were without significant abnormalities. BNP only slightly elevated at 133. Chest x-ray showed no acute process. Suspect the patient does have peripheral edema that is slightly worse than usual. She was advised to continue using her compression stockings and to elevate her feet went home. She was advised follow-up with her PCP for further evaluation. Patient was agreeable to this plan. Given strict return precautions. <Sanjay Pretty MD - Last Filed: 02/11/25 22:30> Differential Diagnosis Differential diagnosis: Likely other (Peripheral edema, CHF, cellulitis) <Sanjay Pretty MD - Last Filed: 02/11/25 22:30> Medical Records Attestation: I reviewed the patient's medical records. <Sanjay Pretty MD - Last Filed: 02/11/25 22:30> Lab Data Attestation: I reviewed the patient's lab results. <Sanjay Pretty MD - Last Filed: 02/11/25 22:30> Result diagrams: 02/11/25 17:47 02/11/25 17:47 <Casey Esquievl APRN - Last Filed: 02/11/25 17:32> Labs: Lab Results 02/11/25 Range/Units 17:47 WBC 4.9 (4.5-10.0) K/mm3 RBC 3.55 L (4.2-5.4) M/mm3 Hgb 10.9 L (12.0-15.0) g/dL Hct 33.2 L (37.0-47.0) % MCV 93.5 (80-100) fl MCH 30.7 (26-34) pg MCHC 32.8 (32-36) g/dl RDW 13.2 (11.5-14.5) % Plt Count 119 L (150-375) k/mm3 MPV 10.5 H (7.4-10.4) fl Immature Gran % (Auto) 0.2 (0-0.5) % Neut % (Auto) 45.9 (45.5-73.1) % Lymph % (Auto) 41.2 (18.3-44.2) % Curry % (Auto) 8.6 H (2.6-8.5) % Eos % (Auto) 3.1 (0-4.4) % Baso % (Auto) 1.0 (0.2-1.2) % Lymph # (Auto) 2.00 (0.9-3.2) K/mm3 Curry # (Auto) 0.4 (0.1-0.6) K/mm3 Eos # (Auto) 0.2 (0-0.3) K/mm3 Baso # (Auto) 0.1 (0.0-0.1) K/mm3 Abs Immat Gran (auto) 0.01 (0.00-0.031) K/mm3 Absolute Neuts (auto) 2.2 (1.3-6.7) K/mm3 Absolute Nucleated RBC 0.000 (0.0-0.012) K/mm3 Nucleated RBC % 0.0 (0.0-0.2) % PT 13.1 (11.1-14.7) Seconds INR 1.0 APTT 27.7 (22.3-36.8) Seconds Sodium 141 (137-145) mmol/L Potassium 3.6 (3.4-5.0) mmol/L Chloride 113 H (98-107) mmol/L Carbon Dioxide 22 (22-30) mmol/L Anion Gap 6 (4-12) mmol/L BUN 13 (7-17) mg/dL Creatinine 0.79 (0.7-1.0) mg/dL Estim Creat Clear Calc 68 ml/min Estimated GFR > 60 (59 - ) Glucose 105 (65-110) mg/dL Calcium 8.8 (8.4-10.2) mg/dL Total Bilirubin 0.5 (0.2-1.3) mg/dL AST 37 H (14-36) U/L ALT 33 (6-35) U/L Alkaline Phosphatase 48 (38-126) U/L Troponin I < 0.012 (0.000-0.034) ng/mL NT-Pro-B Natriuret Pep 133 H (19.9-100) pg/mL Total Protein 7.2 (6.3-8.2) g/dL Albumin 4.1 (3.5-5.1) g/dL <Casey Esquivel, MANAGER ENVIRONMENTAL AFFAIRS - Last Filed: 02/11/25 17:32> Lab Results 02/11/25 Range/Units 17:47 WBC 4.9 (4.5-10.0) K/mm3 RBC 3.55 L (4.2-5.4) M/mm3 Hgb 10.9 L (12.0-15.0) g/dL Hct 33.2 L (37.0-47.0) % MCV 93.5 (80-100) fl MCH 30.7 (26-34) pg MCHC 32.8 (32-36) g/dl RDW 13.2 (11.5-14.5) % Plt Count 119 L (150-375) k/mm3 MPV 10.5 H (7.4-10.4) fl Immature Gran % (Auto) 0.2 (0-0.5) % Neut % (Auto) 45.9 (45.5-73.1) % Lymph % (Auto) 41.2 (18.3-44.2) % Curry % (Auto) 8.6 H (2.6-8.5) % Eos % (Auto) 3.1 (0-4.4) % Baso % (Auto) 1.0 (0.2-1.2) % Lymph # (Auto) 2.00 (0.9-3.2) K/mm3 Curry # (Auto) 0.4 (0.1-0.6) K/mm3 Eos # (Auto) 0.2 (0-0.3) K/mm3 Baso # (Auto) 0.1 (0.0-0.1) K/mm3 Abs Immat Gran (auto) 0.01 (0.00-0.031) K/mm3 Absolute Neuts (auto) 2.2 (1.3-6.7) K/mm3 Absolute Nucleated RBC 0.000 (0.0-0.012) K/mm3 Nucleated RBC % 0.0 (0.0-0.2) % PT 13.1 (11.1-14.7) Seconds INR 1.0 APTT 27.7 (22.3-36.8) Seconds Sodium 141 (137-145) mmol/L Potassium 3.6 (3.4-5.0) mmol/L Chloride 113 H (98-107) mmol/L Carbon Dioxide 22 (22-30) mmol/L Anion Gap 6 (4-12) mmol/L BUN 13 (7-17) mg/dL Creatinine 0.79 (0.7-1.0) mg/dL Estim Creat Clear Calc 68 ml/min Estimated GFR > 60 (59 - ) Glucose 105 (65-110) mg/dL Calcium 8.8 (8.4-10.2) mg/dL Total Bilirubin 0.5 (0.2-1.3) mg/dL AST 37 H (14-36) U/L ALT 33 (6-35) U/L Alkaline Phosphatase 48 (38-126) U/L Troponin I < 0.012 (0.000-0.034) ng/mL NT-Pro-B Natriuret Pep 133 H (19.9-100) pg/mL Total Protein 7.2 (6.3-8.2) g/dL Albumin 4.1 (3.5-5.1) g/dL <Sanjay Pretty MD - Last Filed: 02/11/25 22:30> Imaging Data Radiologist's impression: Impressions Chest X-Ray 02/11/25 17:58 Impression: No acute cardiopulmonary abnormality. <Sanjay Pretty MD - Last Filed: 02/11/25 22:30> Discharge Plan Discharge Clinical Impression: Edema, peripheral <Casey Esquivel APRN - Last Filed: 02/11/25 17:32> Patient Disposition: Home <Casey Esquivel APRN - Last Filed: 02/11/25 17:32> Condition: Stable <Casey Esquivel APRN - Last Filed: 02/11/25 17:32> Instructions: Antibiotic Form, Edema (ED) <Casey Esquivel APRN - Last Filed: 02/11/25 17:32> Additional Instructions: Follow-up with your PCP in the next week to potentially discuss medications for your edema. Continue your compression stockings. Elevate your legs when at home. Return to the ED for any new or worsening symptoms. <Casey Esquivel APRN - Last Filed: 02/11/25 17:32> Patient Language: Syriac <Casey Esquivel APRN - Last Filed: 02/11/25 17:32> Prescriptions: No Action ibuprofen [IBU] 600 mg tablet 600 mg PO Q6H PRN (Reason: pain) Qty: 14 0RF <Casey Esquivel APRN - Last Filed: 02/11/25 17:32> Follow-up/Referrals: Kashmir,JOVANNY Woo [Primary Care Provider, Family Practice] <Casey Esquivel APRN - Last Filed: 02/11/25 17:32>
[2025-02-11 17:54] LABS: Hematocrit 33.2 % (37.0-47.0); Hemoglobin 10.9 g/dL (12.0-15.0); Immature Granulocyte Percent A 0.2 % (0-0.5); Lymphocytes Absolute Auto 2.00 K/mm3 (0.9-3.2); Mean Corpuscular HGB Conc 32.8 g/dl (32-36); Mean Corpuscular Hemoglobin 30.7 pg (26-34); Mean Corpuscular Volume 93.5 fl (80-100); Nucleated Red Blood Cells Absolute Auto 0.000 K/mm3 (0.0-0.012); Nucleated Red Blood Cells Perc 0.0 % (0.0-0.2); Platelet Count Result 119 k/mm3 (150-375); Red Blood Count 3.55 M/mm3 (4.2-5.4); White Blood Count 4.9 K/mm3 (4.5-10.0)
[2025-02-11 18:05] LABS: Albumin Level 4.1 g/dL (3.5-5.1); Alkaline Phosphatase 48 U/L (38-126); Anion Gap 6 mmol/L (4-12); Bilirubin,Total 0.5 mg/dL (0.2-1.3); Blood Urea Nitrogen 13 mg/dL (7-17); Carbon Dioxide 22 mmol/L (22-30); Chloride 113 mmol/L (98-107); Estimated CRCL calculation 68 ml/min; Estimated Glomerular Filt Rate > 60; Potassium 3.6 mmol/L (3.4-5.0); Sodium 141 mmol/L (137-145); Total Protein 7.2 g/dL (6.3-8.2)
[2025-02-11 18:06] LABS: INR 1.0; Partial Thromboplastin Time 27.7 Seconds (22.3-36.8); Prothrombin Time 13.1 Seconds (11.1-14.7)
[2025-02-11 18:23] LABS: Alanine Aminotransferase 33 U/L (6-35); Aspartate Amino Transferase 37 U/L (14-36); Calcium 8.8 mg/dL (8.4-10.2); Glucose 105 mg/dL (65-110)
[2025-02-11 18:30] VITALS: BP 148/73; PULSE 54; RESP 18; O2SAT 98
[2025-02-11 18:35] LABS: NT Pro B Type Natriuretic Pept 133 pg/mL (19.9-100); Troponin I < 0.012 ng/mL (0.000-0.034)
--- OUTSIDE RECORDS SUMMARY | 2025-02-11 19:00 | XMS_ITS | Clinical Summary ---
Author Organization [facility] Address [address] [place] [address] Care Team Providers Care Systems Design Engineer Name Role Phone Cyril Wright MD Primary Care Provider [phone] Source Comments [facility],non-owned Affiliates and Associated Physician Practices is amultiple site organization consisting of ambulatory clinics and hospital sitesin [place], [place], [place] and [place]. This disclosure is being madepursuant to the Care Everywhere program and may not contain all information available regarding this patient. Last updated 18.[facility] [employer] Social History Tobacco Use Types Packs/Day Years [...] patient's age to complete this topic Insurance [facility] Address: [facility] [id number] [place] [address] [employer] MEDICARE ADV SELF PAY NO INSURANCE Member Subscriber Plan / Payer (Ef fective for All Dates) Name:Lashonda Lyons Jitendra Member ID:Not on file Relation to Subscriber:Not on file Name:DOMENICA LYONSA Jitendra Subscriber ID:Not on file (Home) Address: [place] [address] Payer ID:Not on file Group ID:Not on file Type:Self Pay Address: [place], [place] AETNA MEDICARE ADV SELF PAY NO INSURANCE Member Subscriber Plan / Payer (Ef fective for All Dates) Name:Domenica Lyonsa Jitendra Member ID:Not on file Relation to Subscriber:Not on file Name:ELOYLASHONDA Subscriber ID:Not on file (Home) Address: [place] [address] Payer ID:Not on file Group ID:Not on file Type:Self Pay Address: [place], [place] Care Teams Systems Design Engineer Relationship Specialty Start Date End Date Cyril Wright MD [address] [place] [address] [address] [place] [address] PCP - General 01/10/19
--- OUTSIDE RECORDS SUMMARY | 2025-02-11 19:00 | XMS_ITS | Encounter Summary ---
Author Organization [facility] Address [address] [place] [address] Phone Care Team Providers Care Used Equipment Sales Representative Name Role Phone Destiny Puga APRN, CNP Primary Care Provider [phone] Encounter Details Date Type Department Care Team (Late st Contact Info) Description 02/05/2025 Results Follow-Up [facility] [address] [place] [phone] Alicia Larry November, PAC [address] [place] [address] VITAMIN B12, FERRITIN, FOLIC ACID (FOLATE), Additional [...] Description 02/13/2025 3:40 PM CDT Office Visit [facility] [address] [place] [phone] Alicia Larry November, PAC [address] [place] [address] Discharge Disposition: Discharged to home or Selfcare documented as of this encounter Visit Diagnoses Not on filedocumented in this encounter Care Teams Used Equipment Sales Representative Relationship Specialty Start Date End Date Destiny Puga APRN, INSULATION PACKER [address] [place] [address] PCP - General Advanced Practice Nurse 01/21/25 documented as of this encounter
--- OUTSIDE RECORDS SUMMARY | 2025-02-11 19:00 | XMS_ITS | Clinical Summary ---
Author Organization [facility] Address [address] [place] [address] Care Team Providers Care Residential Appliance Repair Technician Name Role Phone Robert Everett MD Primary Care Provider [phone] Allergies No known active allergies Medications atorvastatin [...] (01/14/2019): Added automatically from request for surgery [id number] Post-menopausal bleeding 01/14/2019 Overview (01/14/2019): Added automatically from request for surgery [id number] Obesity with body mass index 30 or [...] history of liver cancer - (Added by [employer] Conv) Prostate cancer Father Family histo ry of malignant neoplasm of prostate - (Added by [employer] Conv) Diabetes Mother Family history of diabetes mellitus - (Added by [employer] Conv) Heart attack Mother Family history of [...] on file Legal Sex Female 5:53 AM COTTON EXPERT Gender Identity Not on file Sexual Orientation [...] Comments Blood Pressure 160/86 04/18/2023 11:34 AM COTTON EXPERT Pulse 68 04/18/2023 11:34 AM COTTON EXPERT Temperature 36.6 C (97.8 F) 04/18/2023 11:34 AM COTTON EXPERT Respiratory Rate 16 04/18/2023 11:3 4 AM COTTON EXPERT Oxygen Saturation 96% 04/18/2023 11: 34 AM COTTON EXPERT Inhaled Oxygen Concentration - - Weight 99.7 kg (219 lb 14.4 oz) 023 11:34 AM COTTON EXPERT Height 160 cm (5' 2.99) 04/18/2023 11: 34 AM COTTON EXPERT Body Mass Index 38.96 04/18/2023 11:34 AM COTTON EXPERT Plan of Treatment Health Maintenance Due Date [...] Female Attending MD: Shahzad Hylton M.D. Room: [place] [address] Note Status: Child Protective Services Specialist Override Procedure: Colonoscopy Indications: Screening for colorectal [...] Thescope was passed under direct vision. The [id number] introduced through the anus and advanced to the cecum, identified by appendiceal orifice and ileocecal valve.The colonoscopy was performed without difficulty. Thepatient tolerated the procedure well. The quality of the bowel preparation was evaluated using the BBPS ([place] Bowel Preparation Scale) with scores of: Right [...] ACCESS CHOICE AET MEDICARE GOLD ANTHEM ACCESS [facility] MDCR HMO REF Advance Directives For more information, please contact: [phone] * Full Code (Latest Code Status on File) Date Activated Date Inactivated Comments 02/13/2019 5:34 PM 02/14/2019 4:01 PM * Full Code Date Activated Date Inactivated Comments 02/06/2019 7:38 AM 02/06/2019 1:33 PM Care Teams Residential Appliance Repair Technician Relationship Specialty Start Date End Date Robert Everett MD [address] [place] [address] PCP - General 01/23/19
--- OUTSIDE RECORDS SUMMARY | 2025-02-11 19:00 | XMS_ITS ---
Author Organization [facility] Address [address] [place] [address] Care Team Providers Care Steam Fitter Supervisor Maintenance Name Role Phone Robert Everett MD Primary Care Provider [phone] Active Problems Problem Noted Date Diagnosed Date Osteoarthritis 03/04/2019 Autoimmune hepatitis 01/14/2019 Chronic constipation 01/14/2019 Nodular radiologic density 01/14/2019 Knee pain 01/14/2019 Pain of right lower extremity 01/14/2019 Sinusitis 01/14/2019 Symptoms involving urinary system 01/14/2019 Tear of meniscus of knee 01/14/2019 Endometrial cancer 01/14/2019 Overview (01/14/2019): Added automatically from request for surgery [id number] Post-menopausal bleeding 01/14/2019 Overview (01/14/2019): Added automatically from request for surgery [id number] Obesity with body mass index 30 or greater 01/19 Positive antinuclear antibody 01/20/2016 Current Treatment and Therapy Plans No current plan information found. Past Treatment and Therapy Plans No past plan information found. Lifetime Dose Tracking * Chemical Lifetime Dose Automatic Entry Manual Entr y DLP 1,822 mGycm 1,822 mGycm 0 mGycm
--- OUTSIDE RECORDS SUMMARY | 2025-02-11 19:00 | XMS_ITS | Clinical Summary ---
Author Organization [facility] Address [address] [place] [address] Phone Care Team Providers Care Senior Visual Designer Name Role Phone Destiny Puga APRN, CLEMENTE Primary Care Provider [phone] Medications atorvastatin (LIPITOR) 40 MG Tablet Take [...] mcg daily. 07/23/2024 Active ergocalciferol (VITAMIN D) 88542 UNIT Capsule Take 1.25 mg by mouth once a week. 11/07/2024 Active Active Problems Problem Noted Date Diagnosed Date Thrombocytopenia 01/30/2025 Encounters Date Type Department Care Team Description 02/05/2025 Results Follow-Up [facility] [address] [place] [phone] Alicia Larry November, PAC VITAMIN B12, FERRITIN, FOLIC ACID (FOLATE), Additional followed-up results: 9 01/30/2025 4:00 PM CDT Initial Consult [facility] [address] [place] [phone] Alicia Larry November, PAC Thrombocytopenia (HCC) (Primary Dx) Discharge Disposition: Discharged to home or Selfcare 01/30/2025 2:40 PM CDT [facility] [address] [place] [address] Larry, Alicia November, Thrombocytopenia (HCC) Discharge Disposition: [...] Description 02/13/2025 3:40 PM CDT Office Visit [facility] [address] [place] [phone] Alicia Larry November, [place] [address] Discharge Disposition: Discharged to home or Selfcare [...] - 156 mcg/dL 01/30/2025 4:30 PM CDT [facility] TRANSFERRIN 275 173 - 360 mg/dL 01/30/2025 4:30 PM CDT [facility] TIBC, CALCULATED 344 265 - 497 mcg/dL 01/30/2025 4:30 PM CDT [facility] % SATURATION * 20 15 - 62 % 01/30/2025 4:30 PM CDT [facility] Blood Venipuncture / Unknown 01/30/2025 3:57 PM CDT 01/30/2025 3:57 PM CDT us Alicia Larry PAC CHEMISTRY ORDERABLES Emilia l Result [facility] [address] [place] [address] * (ABNORMAL) CBC WITH AUTO DIFFERENTIAL (01/30/2025 3:57 PM CDT) WBC 4.85 4.00 - 12.00 10(3)/mcL 01/30/2025 4:12 PM CDT [facility] RBC 3.57(L) 3.80 - 5.30 10(6)/mcL 01/30/2025 4:12 PM CDT [facility] HEMOGLOBIN (HGB) 11.1(L) 12.0 - 15.8 g/dL 01/30/2025 4:12 PM CDT [facility] HEMATOCRIT (HCT) 33.4(L) 36.0 - 47.0 % 01/30/2025 4:12 PM CDT [facility] MCV 93.6 82.0 - 96.0 fL 01/30/2025 4:12 PM CDT [facility] MCH 31.1 26.0 - 34.0 pg 01/30/2025 4:12 PM CDT [facility] MCHC 33.2 31.0 - 36.0 g/dL 01/30/2025 4:12 PM CDT [facility] PLATELET COUNT 129(L) 140 - 440 10(3)/mcL 01/30/2025 4:12 PM CDT [facility] RDW 13.2 11.8 - 15.5 % 01/30/2025 4:12 PM CDT [facility] MPV 11.1 9.7 - 12.4 fL 01/30/2025 4:12 PM CDT [facility] NEUTROPHILS 46.6(L) 47.0 - 73.0 % 01/30/2025 4:12 PM CDT [facility] LYMPHOCYTES 40.8 18.0 - 42.0 % 01/30/2025 4:12 PM CDT [facility] MONOCYTES 8.9 4.0 - 12.0 % 01/30/2025 4:12 PM CDT [facility] EOSINOPHILS 2.1 0.0 - 5.0 % 01/30/2025 4:12 PM CDT [facility] BASOPHILS 1.4(H) 0.0 - 1.0 % 01/30/2025 4:12 PM CDT [facility] ABSOLUTE NEUTROPHILS 2.26 1.60 - 7.70 10(3)/mcL 01/30/2025 4:12 PM CDT [facility] ABSOLUTE LYMPHOCYTES 1.98 1.30 - 3.20 10(3)/[facility] 01/30/2025 4:12 PM CDT [facility] ABSOLUTE MONOCYTES 0.43 0.20 - 1.00 10(3)/[facility] 01/30/2025 4:12 PM CDT [facility] ABSOLUTE EOSINOPHIL 0.10 0.00 - 0.40 10(3)/[facility] 01/30/2025 4:12 PM CDT [facility] ABSOLUTE BASOPHILS 0.07 0.00 - 0.10 10(3)/[facility] 01/30/2025 4:12 PM CDT [facility] NRBC PER 100 WBC 0 01/31/20 25 4:12 PM CDT [facility] Blood Venipuncture / Unknown 01/30/2025 3:57 PM CDT 01/30/2025 3:57 PM CDT us Alicia Larry PAC HEMATOLOGY ORDERABLES Fin al Result [facility] [address] [place] [address] * PERIPHERAL BLOOD, FLOW CYTOMETRY (01/30/2025 3:57 PM CDT) Pathologist [facility] FINAL DIAGNOSIS Peripheral blood, flow cytometry analysis: No abnormal lymphoid or progenitor cell population is detected. 4:04 PM CDT [facility] at 1604 CDT Specimen Source Received in an EDTA anticoagulated tube is 2.5 mL of peripheral blood. 4:04 PM CDT [facility] Microscopic Description Evaluation of a Nicolas stained peripheral smear shows small lymphocytes. Specimen processed and evaluated at [facility], [place], [place]. This document was completed utilizing speech [...] the provider for clarification. 4:04 PM CDT [facility] Immunophenotypic Findings Flow cytometric analysis reveals a 37% population of immunophenotypically unremarkable T-cells (CD4:CD8 = 0.7) and a 2% population of polytypic B-cells. Granulocytes and monocytes account for most of the remaining events. 4:04 PM CDT [facility] Phenotyping Markers Utilized Flow markers performed (23): CD2, CD3, CD4, CD5, CD7, CD8, CD10, CD13, CD15, CD19, CD20, CD33, CD34, CD38, CD45, CD56, CD117, CD123, CD200, kappa, lambda, HLA-DR, TCR gamma/delta This test was developed and its performance characteristics determined by [facility]. It has not been cleared or approved by the U.S. Food and Drug Administration. 4:04 PM CDT [facility] Case Report Flow Cytometry Repor t Case: [id number] Authorizing Provider: Alicia Larry PAC Collected: 01/30/2025 03:57 PM Ordering Location: [facility] Received: 01/30/2025 03:57 PM [facility] Pathologist: Chay Urbina MD Specimen: Blood 4:04 PM CDT [facility] Blood BLOOD SPECIMEN / Unknown Venipuncture / Unknown 01/30/2025 3:57 PM CDT 01/30/2025 3:57 PM CDT [facility] PATHOLOGY/CYTOLOGY ORDERA BLES Final Result [facility] [address] [place] [address], [place] * (ABNORMAL) FREE KAPPA & LAMBDA LIGHT CHAINS SERUM (01/30/2025 3:57 PM CDT) Free [place] Lt Chn 22.22(H) 3.30 - 19.40 mg/L 02/03/2025 10:04 AM CDT [facility] Free Lambda Lt Chn 20.42 5.71 - 26.30 mg/L 02/03/2025 10:04 AM CDT [facility] free dagoberto valdivia ratio 1.09 0.26 - 1.65 02/03/2025 10:04 AM CDT [facility] Blood Venipuncture / Unknown 01/30/2025 3:57 PM CDT 01/30/2025 3:57 PM CDT [facility] CHEMISTRY ORDERABLES Emilia l Result Performing Organization Address City/[facility]/ZIP Co de Phone Number [facility] [address] [place] [address], [place] * (ABNORMAL) VITAMIN B12 (01/30/2025 3:57 PM CDT) VITAMIN B12 1,315(H) 213 - 816 pg/mL 01/30/2025 5:00 PM CDT [facility] Blood Venipuncture / Unknown 01/30/2025 3:57 PM CDT 01/30/2025 3:57 PM CDT [facility] PAC CHEMISTRY ORDERABLES Emilia l Result [facility] [address] [place] [address] * ERYTHROCYTE SEDIMENTATION RATE (ESR) (01/30/2025 3:57 PM CDT) ESR (SED RATE, ERYTHROCYTE SEDIMENTATION RATE) 2 <30 mm/h 01/30/2025 4:13 PM CDT [facility] Comment: Patients presenting with increased level of fibrinogen, gamma globulins, or abnormally shaped RBCs could affect the results for the erythrocyte sedimentation rate (ESR). Results should be clinically correlated. Blood Venipuncture / Unknown 01/30/2025 3:57 PM CDT 01/30/2025 3:57 PM CDT [facility] HEMATOLOGY ORDERABLES Fin al Result Performing Organization Address [facility]/ZIP Co de Phone Number [facility] [address] [place] [address] * RETICULOCYTE COUNT (RETIC) (01/30/2025 3:57 PM CDT) RETICULOCYTES 1.6 0.5 - 2.0 % 01/30/2025 4:12 PM CDT [facility] Blood Venipuncture / Unknown 01/30/2025 3:57 PM CDT 01/30/2025 3:57 PM CDT [facility] PAC HEMATOLOGY ORDERABLES Fin al Result [facility] [address] [place] [address] * LACTATE DEHYDROGENASE (LD) (01/30/2025 3:57 PM CDT) LDH 195 125 - 220 U/L 01/30/2025 4:30 PM CDT [facility] Blood Venipuncture / Unknown 01/30/2025 3:57 PM CDT 01/30/2025 3:57 PM CDT us Alicia Larry PAC CHEMISTRY ORDERABLES Emilia brandon Result [facility] [address] [place] [address] * (ABNORMAL) IMMUNOFIXATION W/ ELECTROPHORESIS SERUM (01/30/2025 3:57 PM CDT) TOTAL PROTEIN 6.3 6.0 - 8.0 g/dL 02/04/2025 10:21 AM CDT [facility] % ALBUMIN 58.0 55.8 - 66.7 % 02/04/2025 10:21 AM CDT [facility] ALBUMIN SERUM 3.7 2.5 - 5.4 g/dL 02/04/2025 10:21 AM CDT [facility] % ALPHA 1 GLOBULIN 3.1 2.9 - 4.9 % 02/04/2025 10:21 AM CDT [facility] ALPHA 1 0.2 0.2 - 0.4 g/dL 02/04/2025 10:21 AM CDT [facility] % ALPHA 2 GLOBULIN 7.4 7.1 - 11.8 % 02/04/2025 10:21 AM CDT [facility] ALPHA 2 0.5 0.5 - 1.0 g/dL 02/04/2025 10:21 AM CDT [facility] % BETA 15.0(H) 8.4 - 13.1 % 02/04/2025 10:21 AM CDT [facility] BETA-GLOBULIN 0.9 0.5 - 1.1 g/dL 02/04/2025 10:21 AM CDT [facility] % GAMMA GLOBULIN 16.4 11.1 - 18.8 % 02/04/2025 10:21 AM CDT [facility] GAMMA 1.0 0.7 - 1.5 g/dL 02/04/2025 10:21 AM CDT [facility] IMMUNOGLOBULIN G 1,061 552 - 1,631 mg/dL 02/04/2025 10:21 AM CDT [facility] IMMUNOGLOBULIN A 160 69 - 517 mg/dL 02/04/2025 10:21 AM CDT [facility] IMMUNOGLOBULIN M 87 33 - 293 mg/dL 02/04/2025 10:21 AM CDT [facility] INTERPRETATION SERUM No abnormal protein band is detected by serum protein electrophoresis. Serum immunofixation electrophoresis is negative for monoclonal immunoglobulins. Reviewed by Jason Murdock, Ph.D. 02/04/2025 10:21 AM CDT [facility] A/G RATIO, SERUM 1.4 02/05/20 10:21 AM CDT [facility] Blood Venipuncture / Unknown 01/30/2025 3:57 PM CDT 01/30/2025 3:57 PM CDT Narrative [facility] - 02/04/2025 10:21 AM CDT Reviewed by Mercedes Moy M.D. [facility] PAC CHEMISTRY ORDERABLES Emilia l Result [facility] [address] [place] [address], * (ABNORMAL) FOLIC ACID (FOLATE) (01/30/2025 3:57 PM CDT) Pathologist [facility] FOLATE 6.1(L) 7.0 - 31.4 ng/mL 01/30/2025 5:00 PM CDT [facility] IS THE PATIENT REQUIRED TO BE FASTING? No 01/30/2025 5:00 PM CDT [facility] Blood Venipuncture / Unknown 01/30/2025 3:57 PM CDT 01/30/2025 3:57 PM CDT [facility] PAC CHEMISTRY ORDERABLES Emilia l Result [facility] [address] [place] [address] * FERRITIN (01/30/2025 3:57 PM CDT) FERRITIN 177 5 - 204 ng/mL 01/30/2025 4:46 PM CDT [facility] Blood Venipuncture / Unknown 01/30/2025 3:57 PM CDT 01/30/2025 3:57 PM CDT Alicia Larry PAC CHEMISTRY ORDERABLES Emilia l Result [facility] [address] [place] [address] * (ABNORMAL) CMP (COMPREHENSIVE METABOLIC PANEL) (01/30/2025 3:57 PM CDT) Pathologist [facility] SODIUM 142 136 - 145 mmol/L 01/30/2025 4:30 PM CDT [facility] POTASSIUM 3.7 3.5 - 5.1 mmol/L 01/30/2025 4:30 PM CDT [facility] CHLORIDE 112(H) 98 - 107 mmol/L 01/30/2025 4:30 PM CDT [facility] CO2, VENOUS 22 22 - 30 mmol/L 01/30/2025 4:30 PM CDT [facility] ANION GAP 11.7 <18.0 mmol/L 01/30/2025 4:30 PM CDT [facility] GLUCOSE 115(H) 70 - 99 mg/dL 01/30/2025 4:30 PM CDT [facility] BUN 15 10 - 20 mg/dL 01/30/2025 4:30 PM CDT [facility] CREATININE, BLOOD 0.79 0.60 - 1.00 mg/dL 01/30/2025 4:30 PM CDT [facility] BUN/CREATININE RATIO 19 12 - 20 ratio 01/30/2025 4:30 PM CDT [facility] TOTAL PROTEIN 6.6 6.0 - 8.0 g/dL 01/30/2025 4:30 PM CDT [facility] ALBUMIN 4.0 3.5 - 5.0 g/dL 01/30/2025 4:[address] [facility] A/G RATIO 1.5 1.0 - 2.2 01/30/2025 4:30 PM CDT [facility] CALCIUM 9.0 8.7 - 10.5 mg/dL 01/30/2025 4:30 PM T [facility] T BILI 0.5 0.2 - 1.2 mg/dL 01/30/2025 4:[address] [facility] SGOT (AST) 33 <43 U/L 01/30/2025 4:[address] [facility] SGPT (ALT) 32 <56 U/L 01/30/2025 4:[address] [facility] ALKALINE PHOSPHATASE 41 40 - 150 U/L 01/30/2025 4:[address] [facility] IS THE PATIENT REQUIRED TO BE FASTING? No 01/30/2025 4:[address] [facility] GFR, ESTIMATED >60 >=60 01/30/2025 4:[address] [facility] Comment: Creatinine Clearance is the preferred criteria for selecting drug dose adjustments in renally impaired patients. The GFR is provided as additional pertinent clinical information. GFR is reported in mL/min/1.73 sq m. Calculation based on the 2020 Chronic Kidney Disease Epidemiology Collaboration (CKD-EPI) equation refit without adjustment for race. GFR, EST. >60 >=60 025 4:[address] [facility] Comment: Creatinine Clearance is the preferred criteria for selecting drug dose adjustments in renally impaired patients. The GFR is provided as additional pertinent clinical information. GFR is reported in mL/min/1.73 sq m. Calculation based on the 2009 Chronic Kidney Disease Epidemiology Collaboration (CKD-EPI). GFR, EST. NONAFRICAN >60 >=60 01/30/2025 4:[address] [facility] Comment: Creatinine Clearance is the preferred [...] PAC CHEMISTRY ORDERABLES Emilia l Result [facility] [address] [place] [address] from Last 3 Months Insurance MEDICARE C [employer] Care Teams Senior Visual Designer Relationship Specialty Start Date End Date Destiny Puga APRN, [facility] [address] [place] [address] PCP - General Advanced Practice Nurse 01/21/25
== END 2025-02-11 19:15 | disposition home or self-care (01) ==
LOC: ANHED 18:58
PROVIDERS: Emergency Provider Student in an Organized Health Care Education/Training Program; PCP Physician Assistant
DX: R60.0 Localized edema (principal); R06.02 Shortness of breath
CPT/HCPCS: 36415; 71046; 80053; 83880; 84484; 85025; 85610; 85730; 99284